=== PATIENT | male | born 1940 ===

== ENCOUNTER 2017-03-13 19:46 | Inpatient (IN) | payer MEDICARE, OTHER ==
[2017-03-13 20:05] VITALS: BMI 26.9
--- NOTE | 2017-03-13 20:40 | ED PDOC ---
Arrival/HPI - General Chief Complaint: High Blood Pressure Time Seen by Provider: 03/13/17 20:20 Historian: Patient - History of Present Illness Narrative History of Present Illness (Text): 03/13/17 20:41 A 76 year old male, whose past medical history includes glaucoma and cataracts, presents to the emergency department complaining of left arm tingling and numbness that developed 2-3 hours ago. Pt states numbness and tingling fully resolved while in the ED. Patient also reports elevated blood pressure today. PMD: Dr. Covington Symptom Onset: Sudden Symptom Course: Unchanged Activities at Onset: Rest Context: Home Past Medical History - Provider Review Nursing Documentation Reviewed: Yes - Infectious Disease Hx of Infectious Diseases: None - Tetanus Immunization Tetanus Immunization: Unknown - Cardiac Hx Hypertension: Yes - Pulmonary Hx Respiratory Disorders: No - HEENT Hx HEENT Disorder: Yes Hx Cataracts: Yes Hx Glaucoma: Yes - Renal Hx Renal Disorder: No - Musculoskeletal/Rheumatological Hx Arthritis: Yes - Gastrointestinal Hx Gastrointestinal Disorders: Yes Hx Gastroesophageal Reflux: Yes - Genitourinary/Gynecological Hx Prostate Problems: Yes - Psychiatric Hx Substance Use: No - Past Surgical History Past Surgical History: No Previous - Surgical History Hx Cataract Extraction: Yes Hx Cholecystectomy: Yes - Anesthesia Hx Anesthesia: Yes Hx Anesthesia Reactions: No Hx Malignant Hyperthermia: No - Suicidal Assessment Feels Threatened In Home Enviroment: No Family/Social History - Physician Review Nursing Documentation Reviewed: Yes Family/Social History: No Known Family HX Smoking Status: Former Smoker Hx Alcohol Use: Yes Frequency of alcohol use: Socially Hx Substance Use: No Hx Substance Use Treatment: No Allergies/Home Meds Allergies/Adverse Reactions: Allergies No Known Allergies Allergy (Verified 10/24/15 12:55) Home Medications: Home Meds Medication Instructions Recorded Confirmed Aspirin [Aspir 81] 1 tab PO DAILY 10/19/13 03/13/17 Combigan 0.2%-0.5% 5 ml 1 drop OD DAILY 10/19/13 03/13/17 Dorzolamide 2% 1 drop OD BID 10/19/13 03/13/17 Simvastatin 20 mg PO DAILY 10/19/13 03/13/17 Tadalafil [Cialis] 5 mg PO DAILY PRN 10/24/15 03/13/17 Famotidine [Pepcid] 1 tab PO BID 03/13/17 03/13/17 Review of Systems - Physician Review All systems were reviewed & negative as marked: Yes Physical Exam - Physical Exam Narrative Physical Exam (Text): 03/13/17 20:39- Review of Systems Constitutional: Normal. absent: Fatigue, Weight Change, Fevers Eyes: Normal ENT: Normal Respiratory: Normal absent: SOB, Cough, Sputum Cardiovascular: Normal absent: Chest pain, Palpitations, Syncope Gastrointestinal: Normal absent: Abdominal pain, Diarrhea, Nausea, Vomiting Genitourinary: Normal. absent: Dysuria, Frequency, Hematuria Musculoskeletal: left arm tingling and numbness absent: Arthralgias, Back Pain, Neck Pain Skin: Normal Neurological: Normal absent: Focal Weakness Endocrine: Normal Hemo/Lymphatic: Normal Psychiatric: Normal - Physical exam Patient appears age appropriate, speaking full sentences without difficulty - Systems Exam Head: Present: Atraumatic, Normocephalic Pupils: Present: L. pupil reactive to light. R. pupil non-reactive. Pt states this is not new, states he has a hx of cataract Extraocular Muscles: Present: EOMI Conjunctiva: Present: Normal Mouth: Present: Moist Mucous Membranes Neck: Present: Normal Range of Motion. No: MIDLINE TENDERNESS, Paraspinal Tenderness Respiratory/Chest: Present: Clear to Auscultation, Good Air Exchange. No: Respiratory Distress, Accessory Muscle Use, Tachypnic Cardiovascular: Present: Regular Rate and Rhythm, Normal S1, S2, Peripheral Pulses Present. No: Murmurs Abdomen: Present: Normal Bowel Sounds, No: Tenderness, Peritoneal Signs, Rebound, Guarding, Distention Back: Present: Normal Inspection. No: Midline Tenderness, Paraspinal Tenderness Upper Extremity: Present: Normal Inspection. No: Cyanosis, Edema Lower Extremity: Present: Normal Inspection. No: Edema Neurological: Present: GCS=15, Speech Normal, cranial nerves II through XII fully intact with no cerebellar abnormality, neuro-sensory fully intact. No focal neurological deficits. Skin: Present: Warm, Dry, Normal Color. No: Rashes Lymphatic: Present: OX3, NI, NC Psychiatric: Present: Alert, Oriented x 3, Normal Insight, Normal Concentration Vital Signs Reviewed: Yes Vital Signs Temp Pulse Pulse Resp BP BP Pulse Ox 03/13/17 21:08 98.1 F 60 25 H 144/88 98 03/13/17 20:13 60 148/80 03/13/17 20:03 98.2 F 62 18 148/80 98 Temperature: Afebrile Blood Pressure: Normal Pulse: Regular Respiratory Rate: Normal Appearance: Positive for: Well-Appearing, Non-Toxic, Comfortable Pain Distress: None Mental Status: Positive for: Alert and Oriented X 3 Medical Decision Making ED Course and Treatment: 03/13/17 20:36 Impression: A 76 year old male with left arm tingling and numbness which has resolved. pt has no focal neurological deficits on examination Differential Diagnosis included but are not limited to: TIA Plan: -- EKG -- CT head -- chest xray -- labs -- Urinalysis -- Reassess and disposition Prior Visits: Notes and results from previous visits were reviewed. Patient last reported to the emergency department on 10/24/15 for evaluation of head and neck pain after fall. Progress Notes: EKG shows NSR at [address]-segment elevations, normal intervals. Interpreted by me. CT Head Without Intravenous Contrast FINDINGS: Brain: No evidence of acute intracranial bleed. No mass lesion or mass effect. Richard/white matter differentiation is unremarkable. Cerebellum is unremarkable. Cisterns are unremarkable. Brainstem is unremarkable. No suprasellar mass. No edema. Ventricles: Unremarkable. No ventriculomegaly. Bones/joints: Unremarkable. No acute fracture. Soft tissues: Unremarkable. Sinuses: Unremarkable as visualized. No acute sinusitis. Mastoid air cells: Unremarkable as visualized. No mastoid effusion. IMPRESSION: No evidence of acute pathology. Dictated and Authenticated by: Melani Doran MD 03/13/2017 9:07 PM Eastern Time ([place] & [place]) 03/13/17 22:08 Chest xray interpreted by ED physician shows no pneumothorax, no cardiomegaly, no infiltrates 03/13/17 22:[address] Garcia, accepted obs under his service pt aware of and agrees with plan no focal neurological deficits on reeval - Lab Interpretations Lab Results: 03/13/17 20:40 03/13/17 20:40 Lab Results 03/13/17 21:28: Urine Color Yellow, Urine Appearance Clear, Urine pH 7.5, Ur Specific [place] 1.010, Urine Protein Negative, Urine Glucose (UA) Negative, Urine Ketones Negative, Urine Blood Trace-lysed H, Urine Nitrate Negative, Urine Bilirubin Negative, Urine Urobilinogen 0.2, Ur Leukocyte Esterase Negative , Urine RBC 1 - 3, Urine WBC 0 - 2, Ur Epithelial Cells 0 - 2 03/13/17 20:40: Blood Type O POSITIVE, Antibody Screen Negative, BBK History Checked No verified bt 03/13/17 20:40: Sodium 140, Potassium 4.6, Chloride 103, Carbon Dioxide 28, Anion Gap 14, BUN 15, Creatinine 1.2, Est GFR ( Amer) > 60, Est GFR (Non- Af Amer) 59, Random Glucose 106, Calcium 9.3, Total Bilirubin 0.4, AST 22, ALT 25, Alkaline Phosphatase 75, Troponin I < 0.01 D, Total Protein 8.1, Albumin 4.4, Globulin 3.8, Albumin/Globulin Ratio 1.2, Triglycerides 107, Cholesterol 116 L, LDL Cholesterol Direct 63, HDL Cholesterol 34 03/13/17 20:40: PT 11.8, INR 1.09 H, APTT 28.8 03/13/17 20:40: WBC 9.4, RBC 3.92, Hgb 12.8 L, Hct 36.8 L, MCV 93.9, MCH 32.7, MCHC 34.8, RDW 14.4, Plt Count 215, MPV 10.1, Gran % 44.5 L, Lymph % (Auto) 36.3 H, [place] % (Auto) 7.4 H, Eos % (Auto) 11.5 H, Baso % (Auto) 0.3, Gran # 4.18 , Lymph # 3.4, [place] # 0.7 H, Eos # 1.1 H, Baso # 0.03 I have reviewed the lab results: Yes - RAD Interpretation Radiology Orders: 03/13/17 20:26 CHEST ONE VIEW [RAD] Stat 03/13/17 20:27 HEAD W/O CONTRAST [CT] Stat - EKG Interpretation Interpreted by ED Physician: Yes Type: 12 lead EKG - Medication Orders Current Medication Orders: Discontinued Medications Aspirin (Aspirin Chewable) 324 mg PO STAT STA Stop: 03/13/17 22:07 Atorvastatin Calcium (Lipitor) 40 mg PO STAT STA Stop: 03/13/17 22:07 NIHSS Scale ([place]) Time Performed: 22:02 - How Severe is the Stoke Baseline Level of Consciousness: 0=Alert LOC to Questions: 0=Both comments correct LOC to commands: 0=Obeys both correctly Best Gaze: 0=Normal Visual: 0=No visual loss Facial: 0=Normal Motor Arm - Left: 0=No drift Motor Arm - Right: 0=No drift Motor Leg - Left: 0=No drift Motor Leg - Right: 0=No drift Limb Ataxia: 0=Absent Sensory: 0=Normal Best Language: 0=No aphasia Dysarthia: 0=Normal articulation Extinction & Inattention (Neglect): 0=Normal, no object Score: 0 Risk Level: No Stroke Risk rTPA Inclusion/Exclusion - Refusal of Treatment Patient Refused Treatment: No - Inclusion Criteria for Altepase Patient is 18 years or Older: Yes The Clinical Diagnosis of Ischemic Stroke That is Causing a Potentially Disabling Neurological Deficit: No Time of Onset is Well Established to be Less Than 270 Minute Before Treatment Would Begin: Yes Risk/Benefit Discussed With Patient/Family Member Present: No - Scribe Statement The provider has reviewed the documentation as recorded by the Kitaibe Gilberto Sheikh Provider Scribe Attestation: All medical record entries made by the Scribe were at my direction and personally dictated by me. I have reviewed the chart and agree that the record accurately reflects my personal performance of the history, physical exam, medical decision making, and the department course for this patient. I have also personally directed, reviewed, and agree with the discharge instructions and disposition. Disposition/Present on Arrival - Present on Arrival Any Indicators Present on Arrival: No History of DVT/PE: No History of Uncontrolled Diabetes: No Urinary Catheter: No History of Decub. Ulcer: No History Surgical Site Infection Following: None - Disposition Have Diagnosis and Disposition been Completed?: Yes Diagnosis: TIA (transient ischemic attack) Disposition: HOSPITALIZED Disposition Time: 22:22 Patient Plan: Observation Condition: STABLE Referrals: Corie Covington MD [Primary Care Provider] - Follow up with primary
[2017-03-13 20:54] LABS: BASO # 0.03 K/mm3 (0.0-2.0); BASO % 0.3 % (0.0-3.0); EOS # 1.1 (0.0-0.7); EOS % 11.5 % (1.5-5.0); GRAN # 4.18 (1.4-6.5); GRAN % 44.5 % (50.0-68.0); HEMOGLOBIN 12.8 gm/dL (14.0-18.0); LYMPH # 3.4 (1.2-3.4); LYMPH % 36.3 % (22.0-35.0); MEAN CELL VOLUME 93.9 fL (80.0-105.0); MEAN CORPUSCULAR HEMOGLOBIN 32.7 pg (25.0-35.0); MEAN CORPUSCULAR HGB CONC 34.8 g/dl (31.0-37.0); MEAN PLATELET VOLUME 10.1 fl (7.0-11.0); MONO # 0.7 (0.1-0.6); MONO % 7.4 % (1.0-6.0); PLATELET COUNT 215 10^3/uL (120.0-450.0); RBC 3.92 10^6/uL (3.5-6.1); RED CELL DISTRIBUTION WIDTH 14.4 % (11.5-14.5); WHITE BLOOD COUNT 9.4 10^3/ul (4.5-11.0)
[2017-03-13 21:04] LABS: ALB/GLOB RATIO 1.2 (1.1-1.8); ALBUMIN 4.4 g/dL (3.0-4.8); ALT/SGPT 25 U/L (7-56); AST/SGOT 22 U/L (15-59); BLOOD UREA NITROGEN 15 mg/dL (7-21); CALCIUM 9.3 mg/dL (8.4-10.5); GFR AFRICAN-AMERICAN > 60; GFR NON-AFRICAN AMERICAN 59; HDL CHOLESTEROL 34 mg/dL (29-60); INR 1.09 (0.93-1.08); PARTIAL THROMBOPLASTIN TIME 28.8 Seconds (23.7-30.8); PROTHROMBIN TIME 11.8 Seconds (9.9-11.8)
[2017-03-13 21:15] LABS: LDL CHOLESTEROL 63 mg/dL (0-129)
[2017-03-13 21:19] LABS: TROPONIN I < 0.01 ng/mL
[2017-03-13 21:40] LABS: PH,URINE 7.5 (4.7-8.0); URINE BILIRUBIN NEGATIVE (NEGATIVE); URINE BLOOD TRACE-LYSED (NEGATIVE); URINE GLUCOSE (UA) NEGATIVE (NEGATIVE); URINE LEUKOCYTE ESTERASE NEGATIVE Leu/uL (NEGATIVE); URINE NITRATE NEGATIVE (NEGATIVE); URINE PROTEIN NEGATIVE mg/dL (<30 mg/dL); URINE UROBILINOGEN 0.2 E.U./dL (<1 E.U./dL)
[2017-03-13 21:46] LABS: URINE APPEARANCE CLEAR (CLEAR); URINE COLOR YELLOW (YELLOW)
[2017-03-13 22:04] LABS: URINE EPITHELIAL CELLS 0 - 2 /hpf (0-5); URINE WBC 0 - 2 /hpf (0-6)
[2017-03-14 03:56] LABS: BASO # 0.03 K/mm3 (0.0-2.0); BASO % 0.3 % (0.0-3.0); EOS # 1.1 (0.0-0.7); EOS % 9.9 % (1.5-5.0); GRAN # 4.31 (1.4-6.5); GRAN % 39.4 % (50.0-68.0); HEMOGLOBIN 12.5 gm/dL (14.0-18.0); LYMPH # 4.6 (1.2-3.4); LYMPH % 42.4 % (22.0-35.0); MEAN CELL VOLUME 93.1 fL (80.0-105.0); MEAN CORPUSCULAR HEMOGLOBIN 31.8 pg (25.0-35.0); MEAN CORPUSCULAR HGB CONC 34.2 g/dl (31.0-37.0); MEAN PLATELET VOLUME 9.7 fl (7.0-11.0); MONO # 0.9 (0.1-0.6); PLATELET COUNT 196 10^3/uL (120.0-450.0); RBC 3.93 10^6/uL (3.5-6.1); RED CELL DISTRIBUTION WIDTH 14.2 % (11.5-14.5); WHITE BLOOD COUNT 10.9 10^3/ul (4.5-11.0)
[2017-03-14 04:14] LABS: ALB/GLOB RATIO 1.1 (1.1-1.8); ALBUMIN 3.9 g/dL (3.0-4.8); ALT/SGPT 22 U/L (7-56); AST/SGOT 23 U/L (15-59); BLOOD UREA NITROGEN 14 mg/dL (7-21); CALCIUM 9.1 mg/dL (8.4-10.5); GFR AFRICAN-AMERICAN > 60; GFR NON-AFRICAN AMERICAN > 60
[2017-03-14 04:45] LABS: TROPONIN I < 0.01 ng/mL
[2017-03-14 08:30] LABS: BASO # 0.03 K/mm3 (0.0-2.0); BASO % 0.3 % (0.0-3.0); EOS # 1.1 (0.0-0.7); GRAN # 4.77 (1.4-6.5); GRAN % 46.9 % (50.0-68.0); LYMPH # 3.4 (1.2-3.4); LYMPH % 33.8 % (22.0-35.0); MEAN CELL VOLUME 93.3 fL (80.0-105.0); MEAN CORPUSCULAR HEMOGLOBIN 32.3 pg (25.0-35.0); MEAN CORPUSCULAR HGB CONC 34.7 g/dl (31.0-37.0); MEAN PLATELET VOLUME 9.8 fl (7.0-11.0); MONO # 0.8 (0.1-0.6); PLATELET COUNT 226 10^3/uL (120.0-450.0); RBC 4.33 10^6/uL (3.5-6.1); RED CELL DISTRIBUTION WIDTH 14.1 % (11.5-14.5); WHITE BLOOD COUNT 10.2 10^3/ul (4.5-11.0)
[2017-03-14 08:42] LABS: BLOOD UREA NITROGEN 13 mg/dL (7-21); CALCIUM 9.4 mg/dL (8.4-10.5); GFR AFRICAN-AMERICAN > 60; GFR NON-AFRICAN AMERICAN > 60; MAGNESIUM 2.2 mg/dL (1.7-2.2)
--- NOTE | 2017-03-14 08:47 | CARD ---
APPROVED REPORT EKG Measurement Heart [id number] MA [id number] <Conclusion> Normal sinus rhythm Normal ECG
[2017-03-14 08:54] LABS: TROPONIN I < 0.01 ng/mL
--- NOTE | 2017-03-14 09:06 | CT ---
PROCEDURE: CT HEAD WITHOUT CONTRAST. HISTORY: tia COMPARISON: 06/14/2016 TECHNIQUE: Axial computed tomography images were obtained through the head/brain without intravenous contrast. Radiation dose: Total exam DLP = 677.45 mGy-cm. This CT exam was performed using one or more of the following dose reduction techniques: Automated exposure control, adjustment of the mA and/or kV according to patient size, and/or use of iterative reconstruction technique. FINDINGS: HEMORRHAGE: No intracranial hemorrhage. BRAIN: No mass effect or edema. No atrophy or chronic microvascular ischemic changes. VENTRICLES: Unremarkable. No hydrocephalus. CALVARIUM: Unremarkable. PARANASAL SINUSES: Unremarkable as visualized. No significant inflammatory changes. MASTOID AIR CELLS: Unremarkable as visualized. No inflammatory changes. OTHER FINDINGS: None. IMPRESSION: Normal CT of the Head. No intracranial mass, hemorrhage or evidence of acute infarct. No interval change. Preliminary interpretation of this examination was reported by [facility] at 9:07 p.m. on 03/13/2017. There is concurrence of this report with the preliminary interpretation.
[2017-03-14 09:28] LABS: FREE T4 1.23 ng/dL (0.78-2.19)
[2017-03-14] MEDS ORDERED: Pantoprazole 40 mg EC Tab PO SCH (10:00)
--- NOTE | 2017-03-14 10:16 | CP.PCM.PN ---
<Nemesio Booker - Last Filed: 03/14/17 11:53> Subjective - Date & Time of Evaluation Date of Evaluation: 03/14/17 Time of Evaluation: 07:30 - Subjective Subjective: Patient seen and examined at bedside. Hospital day #2. He is resting comfortably in bed. He was observed ambulating in his room without any overt difficulty. No acute events since admission. Nurse was utilized as a event marketing representative. Patient states symptoms have resolved in the ED. Offers no new complaints at this time. Denies chest pain, SOB, N/V, and dizziness. Objective - Vital Signs/Intake and Output Vital Signs (last 24 hours): Temp Pulse Resp BP Pulse Ox 98.4 F 76 20 127/92 H 98 03/14/17 05:59 03/14/17 05:59 03/14/17 05:59 03/14/17 05:59 03/14/17 05:59 Intake and Output: 03/14/17 03/14/17 06:59 18:59 Intake Total 240 Output Total 400 Balance -160 - Medications Medications: Current Medications Aspirin (Ecotrin) 81 mg PO DAILY DIO Atorvastatin Calcium (Lipitor) 10 mg PO DIN DIO Dorzolamide HCl (Trusopt) 0 ml OD BID DIO Famotidine (Pepcid) 20 mg PO BID DIO Non-Formulary Medication (Combigan 0.2%-0.5% 5 Ml) 1 drop OD DAILY DIO Pantoprazole Sodium (Protonix Ec Tab) 40 mg PO 0600 DIO - Labs Labs: 03/14/17 08:23 03/14/17 08:23 PT 11.8 Seconds (9.9-11.8) 03/13/17 20:40 INR 1.09 (0.93-1.08) H 03/13/17 20:40 APTT 28.8 Seconds (23.7-30.8) 03/13/17 20:40 - Constitutional Appears: Well, Non-toxic, No Acute Distress - Head Exam Head Exam: ATRAUMATIC, NORMAL INSPECTION - Eye Exam Eye Exam: EOMI, Normal appearance. absent: Conjunctival injection - ENT Exam ENT Exam: Mucous Membranes Moist, Normal Exam - Neck Exam Neck Exam: Normal Inspection. absent: Thyromegaly - Respiratory Exam Respiratory Exam: Clear to Ausculation Bilateral. absent: Rales, Rhonchi, Wheezes - Cardiovascular Exam Cardiovascular Exam: REGULAR RHYTHM, +S1, +S2 - GI/Abdominal Exam GI & Abdominal Exam: Soft. absent: Firm, Guarding, Tenderness - Extremities Exam Extremities Exam: Normal Inspection - Neurological Exam Neurological Exam: Alert, Awake Additional comments: patient is awake, alert, responds to verbal stimuli, follows commands, and moves extremities spontaneously - Psychiatric Exam Psychiatric exam: Normal Affect, Normal Mood - Skin Skin Exam: Intact, Warm Assessment and Plan - Assessment and Plan (Free Text) Assessment: Patient is a 76 year old male with a PMHx of htn, hpl, arthritis, gerd , cataracts, and glucoma who was admitted on 03/13/2017 for evaluation and treatment of a left arm tingling and numbness. He is currently admitted under observation day #2. Plan: 1. Left Arm Paraesthesias, details- symptoms resolved in ED, working dx- TIA - continue aspirin and statin - CT of head- revealed no acute intracranial findings - MRI/MRA of Head and Cervical Spine - Lipid Profile - HgBA1C - ESR - CRP - B12 - Folate -Carotid duplex bilaterally - Echo - Cardiology is following, appreciate input - Neurology is following, appreciate input 2. HPL - continue statin 3. Htn - stable now, continue to monitor closely off of antihypertensive medications 4. GERD - continue famotidine 5. Glaucoma - continue home dorzolamide 6. PPX - home famotidine - SCD Patient seen, evaluated, and discussed with attending, Dr. Garcia. <Juice Garcia - Last Filed: 04/05/17 09:42> Objective - Vital Signs/Intake and Output Vital Signs (last 24 hours): Temp Pulse Resp BP Pulse Ox 97 F L 65 16 146/88 98 03/14/17 17:38 03/14/17 17:38 03/14/17 17:38 03/14/17 17:38 03/14/17 05:59 Intake and Output: 03/14/17 03/14/17 06:59 18:59 Intake Total 240 600 Output Total 400 500 Balance -160 100 - Medications Medications: Current Medications Aspirin (Ecotrin) 81 mg PO DAILY [facility] Last Admin: 03/14/17 10:16 Dose: 81 mg Atorvastatin Calcium (Lipitor) 10 mg PO DIN [facility] Last Admin: 03/14/17 17:42 Dose: 10 mg Dorzolamide HCl (Trusopt) 0 ml OD BID [facility] Last Admin: 03/14/17 17:42 Dose: 1 drop Famotidine (Pepcid) 20 mg PO BID [facility] Last Admin: 03/14/17 17:42 Dose: 20 mg Non-Formulary Medication (Combigan 0.2%-0.5% 5 Ml) 1 drop OD DAILY [facility] Last Admin: 03/14/17 10:17 Dose: Not Given - Labs Labs: 03/14/17 08:23 03/14/17 08:23 PT 11.8 Seconds (9.9-11.8) 03/13/17 20:40 INR 1.09 (0.93-1.08) H 03/13/17 20:40 APTT 28.8 Seconds (23.7-30.8) 03/13/17 20:40 Assessment and Plan - Assessment and Plan (Free Text) Assessment: A/P ?TIA WITH LEFT UE PARESTHESIAS HTN ??SENSORY TIA ?CERVICAL RADICULOPATHY MILD ANEMIA. AWAITING NEUROLOGY AND CARDIOLOGY EVALUATION AND RECOMMENDATIONS. Attending/Attestation - Attestation I have personally seen and examined this patient.: Yes I have fully participated in the care of the patient.: Yes I have reviewed all pertinent clinical information, including history, physical exam and plan: Yes
[2017-03-14] MEDS: COMBIGAN OD SCH (10:17)
[2017-03-14] MEDS: Dorzolamide 2% Opht Sol 10ml OD SCH ×2 (10:17→17:42)
--- NOTE | 2017-03-14 10:40 | RAD ---
PROCEDURE: CHEST RADIOGRAPH, 1 VIEW HISTORY: tia COMPARISON: 10/24/2015 FINDINGS: LUNGS: Clear. PLEURA: No pneumothorax or pleural fluid seen. CARDIOVASCULAR: Normal. OSSEOUS STRUCTURES: No significant abnormalities. VISUALIZED UPPER ABDOMEN: Normal. OTHER FINDINGS: None. IMPRESSION: No active disease.
[2017-03-14 12:46] LABS: T4 7.9 ug/dL (5.5-11.0)
[2017-03-14 13:23] LABS: FOLATE > 20.0 ng/mL
--- NOTE | 2017-03-14 19:46 | CP.PCM.HP ---
<SILVESTRE GALDAMEZ - Last Filed: 03/14/17 23:40> History of Present Illness - History of Present Illness History of Present Illness: H&P note for March 13 2017 76 year old male with a past medical history of gastritis, glaucoma and cataracts presented to the ED with complaints of numbness and tingling of his left forearm with a duration of three hours. Patient states that this sensation has only occurred once before, which was the day prior. During both occurrences patient states he was not engaging in any physical activity. Patient states he is compliant with his two medications famotidine and docusate , and admits to taking multivitamins. While being examined patient states that numbness sensation had subsided since being admitted. Patient admits to a syncopal episode which took place about a year ago while making a bowel movement in which the patient passed out and hit his head. Patient denies recent trauma, radiation of sensation, weakness, dizziness, headache, vision changes. PMD: Dr. Garcia PMH: as above FH: Grandmother: diabetes Meds: Reviewed Allergies:NKA Present on Admission - Present on Admission Any Indicators Present on Admission: No Past Patient History - Infectious Disease Hx of Infectious Diseases: None - Tetanus Immunizations Tetanus Immunization: Unknown - Past Social History Smoking Status: Former Smoker - CARDIAC Hx Hypertension: Yes - PULMONARY Hx Respiratory Disorders: No - HEENT Hx HEENT Problems: Yes Hx Cataracts: Yes Hx Glaucoma: Yes - RENAL Hx Chronic Kidney Disease: No - MUSCULOSKELETAL/RHEUMATOLOGICAL Hx Falls: Yes (Fall in Oct 2015) - GASTROINTESTINAL Hx Gastrointestinal Disorders: Yes Hx Gastroesophageal Reflux: Yes - GENITOURINARY/GYNECOLOGICAL Hx Prostate Problems: Yes - PSYCHIATRIC Hx Substance Use: No - SURGICAL HISTORY Hx Cataract Extraction: Yes Hx Cholecystectomy: Yes - ANESTHESIA Hx Anesthesia: Yes Hx Anesthesia Reactions: No Hx Malignant Hyperthermia: No Meds Home Medications: Home Medication List Medication Instructions Recorded Confirmed Type Aspirin [Ecotrin] 81 mg PO DAILY #30 03/16/17 Rx Clopidogrel [Plavix] 75 mg PO DAILY #30 tab 03/16/17 Rx Allergies/Adverse Reactions: Allergies Allergy/AdvReac Type Severity Reaction Status Date / Time No Known Allergies Allergy Verified 03/25/17 11:44 Physical Exam - Constitutional Appears: Well, No Acute Distress - Head Exam Head Exam: NORMAL INSPECTION, NORMOCEPHALIC Additional comments: Scar from falling and hitting head on bathroom counter after an episode of syncope during bowel movement. - Eye Exam Eye Exam: Normal appearance - ENT Exam ENT Exam: Mucous Membranes Moist, Normal Exam - Neck Exam Neck exam: Positive for: Normal Inspection - Respiratory Exam Respiratory Exam: Clear to Auscultation Bilateral, NORMAL BREATHING PATTERN - Cardiovascular Exam Cardiovascular Exam: REGULAR RHYTHM - GI/Abdominal Exam GI & Abdominal Exam: Normal Bowel Sounds, Soft - Back Exam Back exam: NORMAL INSPECTION - Neurological Exam Neurological exam: Alert, Normal Gait, Oriented x3 - Psychiatric Exam Psychiatric exam: Normal Affect, Normal Mood - Skin Skin Exam: Normal Color, Warm Results - Vital Signs Recent Vital Signs: Last Vital Signs Temp 97 F L 03/14/17 17:38 Pulse 72 03/14/17 18:00 Resp 16 03/14/17 17:38 BP 146/88 03/14/17 17:38 Pulse Ox 98 03/14/17 05:59 - Labs Result Diagrams: 03/14/17 08:23 03/14/17 08:23 Labs: Laboratory Results - last 24 hr 03/14/17 03/14/17 03/14/17 03:40 03:40 08:23 WBC 10.9 RBC 3.93 Hgb 12.5 L Hct 36.6 L MCV 93.1 MCH 31.8 MCHC 34.2 RDW 14.2 Plt Count 196 MPV 9.7 Gran % 39.4 L Lymph % (Auto) 42.4 H [place] % (Auto) 8.0 H Eos % (Auto) 9.9 H Baso % (Auto) 0.3 Gran # 4.31 Lymph # 4.6 H [place] # 0.9 H Eos # 1.1 H Baso # 0.03 ESR Sodium 142 142 Potassium 4.1 4.8 Chloride 107 106 Carbon Dioxide 27 28 Anion Gap 12 13 BUN 14 13 Creatinine 0.9 0.9 Est GFR ( Amer) > 60 > 60 Est GFR (Non-Af Amer) > 60 > 60 Random Glucose 97 96 Calcium 9.1 9.4 Phosphorus 3.0 Magnesium 2.2 Total Bilirubin 0.4 AST 23 ALT 22 Alkaline Phosphatase 74 Troponin I < 0.01 < 0.01 C-React Prot High Sens Total Protein 7.3 Albumin 3.9 Globulin 3.4 Albumin/Globulin Ratio 1.1 Vitamin B12 597 Folate 18.0 Free T4 Thyroxine (T4) Total T3 TSH 3rd Generation 03/14/17 03/14/17 03/14/17 08:23 08:55 08:55 WBC 10.2 RBC 4.33 Hgb 14.0 Hct 40.4 L MCV 93.3 MCH 32.3 MCHC 34.7 RDW 14.1 Plt Count 226 MPV 9.8 Gran % 46.9 L Lymph % (Auto) 33.8 [place] % (Auto) 8.0 H Eos % (Auto) 11.0 H Baso % (Auto) 0.3 Gran # 4.77 Lymph # 3.4 [place] # 0.8 H Eos # 1.1 H Baso # 0.03 ESR 17 H Sodium Potassium Chloride Carbon Dioxide Anion Gap BUN Creatinine Est GFR ( Amer) Est GFR (Non-Af Amer) Random Glucose Calcium Phosphorus Magnesium Total Bilirubin AST ALT Alkaline Phosphatase Troponin I C-React Prot High Sens 3.69 H Total Protein Albumin Globulin Albumin/Globulin Ratio Vitamin B12 Folate Free T4 1.23 Thyroxine (T4) 7.9 Total T3 TSH 3rd Generation 1.66 03/14/17 03/14/17 08:55 08:55 WBC RBC Hgb Hct MCV MCH MCHC RDW Plt Count MPV Gran % Lymph % (Auto) [place] % (Auto) Eos % (Auto) Baso % (Auto) Gran # Lymph # [place] # Eos # Baso # ESR Sodium Potassium Chloride Carbon Dioxide Anion Gap BUN Creatinine Est GFR ( Amer) Est GFR (Non-Af Amer) Random Glucose Calcium Phosphorus Magnesium Total Bilirubin AST ALT Alkaline Phosphatase Troponin I C-React Prot High Sens Total Protein Albumin Globulin Albumin/Globulin Ratio Vitamin B12 646 Folate > 20.0 Free T4 Thyroxine (T4) Total T3 1.38 TSH 3rd Generation Assessment & Plan - Assessment and Plan (Free Text) Assessment: Assessment: 76 year old male with a PMH syncope, gastritis, glaucoma, and cataracts who presented with numbness and tingling in left forearm. Plan: 1. Left Extremity Paresthesia Multiple etiologies possible: will order a series of labs and check cbc, ESR, thyroid panel, glucose B12, folate. Will order carotid and vertebral duplex US to rule out cerebrovascular etiology. - Date & Time Date: 03/13/17 Time: 11:30 <Juice Garcia U - Last Filed: 04/05/17 09:43> Results - Vital Signs Recent Vital Signs: Last Vital Signs Temp 97 F L 03/16/17 16:00 Pulse 60 03/16/17 16:00 Resp 18 03/16/17 16:00 BP 140/80 03/16/17 16:00 Pulse Ox 98 03/16/17 16:00 - Labs Result Diagrams: 03/16/17 07:00 03/16/17 07:00 Assessment & Plan - Assessment and Plan (Free Text) Assessment: A/P: A/P ?TIA WITH LEFT UE PARESTHESIAS HTN ??SENSORY TIA ?CERVICAL RADICULOPATHY. MILD ANEMIA. AWAITING NEUROLOGY AND CARDIOLOGY EVALUATION AND RECOMMENDATIONS. Attending/Attestation - Attestation I have personally seen and examined this patient.: Yes I have fully participated in the care of the patient.: Yes I have reviewed all pertinent clinical information: Yes
[2017-03-15 07:47] LABS: BASO # 0.04 K/mm3 (0.0-2.0); BASO % 0.4 % (0.0-3.0); EOS # 0.9 (0.0-0.7); GRAN # 3.84 (1.4-6.5); GRAN % 39.5 % (50.0-68.0); HEMOGLOBIN 13.4 gm/dL (14.0-18.0); LYMPH # 4.1 (1.2-3.4); LYMPH % 41.7 % (22.0-35.0); MEAN CELL VOLUME 93.7 fL (80.0-105.0); MEAN CORPUSCULAR HEMOGLOBIN 32.3 pg (25.0-35.0); MEAN CORPUSCULAR HGB CONC 34.4 g/dl (31.0-37.0); MEAN PLATELET VOLUME 10.2 fl (7.0-11.0); MONO # 0.9 (0.1-0.6); MONO % 9.4 % (1.0-6.0); PLATELET COUNT 219 10^3/uL (120.0-450.0); RBC 4.15 10^6/uL (3.5-6.1); RED CELL DISTRIBUTION WIDTH 14.3 % (11.5-14.5); WHITE BLOOD COUNT 9.7 10^3/ul (4.5-11.0)
--- NOTE | 2017-03-15 08:06 | CP.PCM.CON ---
<Huy Sterling - Last Filed: 03/15/17 11:55> History of Present Illness - History of Present Illness History of Present Illness: PGY-[address] Grant Cabrera's Neurology Service: Reason for Consultation: Paresthesias This is a 76 year old male with a history of gastritis, glaucoma, cataracts, arthritis, pre-diabetes who presented to the ED with numbness and tingling of the dorsal left forearm for three hours. Patient stated that he was just sitting on his couch as normal and felt the onset. It occurred once before on the day prior to admission. Patient states that shaking his arm reduced his symptoms and at the time of encounter he was asymptomatic. Patient denied weakness, headache, recent changes in vision, radiation of symptoms. Of note, the patient had a syncopal episode a year ago during a bowel movement. Patient denies CP, SOB, n/v/c/d, abdominal pain, dysuria. PMH: Glaucoma, Cataracts, Gastritis, Arthritis, Pre-DM PSH: Cataract surgery Allergies: NKDA Social: Former smoker, quit 15 years ago. Former drinker, quit 5 years ago. Denies drug use. FH: Grandmother with DM. Two aunts with CVA. Home meds: As per EMR PMD: Dr. Garcia Review of Systems - Constitutional Constitutional: absent: Weakness - EENT Eyes: Other (decreased vision 2/2 cataracts and glaucoma) Ears: absent: Decreased Hearing Nose/Mouth/Throat: absent: Dysphagia - Cardiovascular Cardiovascular: absent: Chest Pain - Respiratory Respiratory: absent: Dyspnea - Gastrointestinal Gastrointestinal: absent: Constipation, Diarrhea, Nausea, Vomiting - Genitourinary Genitourinary: absent: Dysuria - Musculoskeletal Musculoskeletal: absent: Muscle Weakness, Numbness, Tingling - Neurological Neurological: absent: Numbness, Weakness - Endocrine Endocrine: absent: Palpitations Past Patient History - Infectious Disease Hx of Infectious Diseases: None - Tetanus Immunizations Tetanus Immunization: Unknown - Past Social History Smoking Status: Former Smoker - CARDIAC Hx Hypertension: Yes - PULMONARY Hx Respiratory Disorders: No - HEENT Hx HEENT Problems: Yes Hx Cataracts: Yes Hx Glaucoma: Yes - RENAL Hx Chronic Kidney Disease: No - MUSCULOSKELETAL/RHEUMATOLOGICAL Hx Falls: Yes (Fall in Oct 2015) - GASTROINTESTINAL Hx Gastrointestinal Disorders: Yes Hx Gastroesophageal Reflux: Yes - GENITOURINARY/GYNECOLOGICAL Hx Prostate Problems: Yes - PSYCHIATRIC Hx Substance Use: No - SURGICAL HISTORY Hx Cataract Extraction: Yes Hx Cholecystectomy: Yes - ANESTHESIA Hx Anesthesia: Yes Hx Anesthesia Reactions: No Hx Malignant Hyperthermia: No Meds Allergies/Adverse Reactions: Allergies Allergy/AdvReac Type Severity Reaction Status Date / Time No Known Allergies Allergy Verified 10/24/15 12:55 - Medications Medications: Current Medications Acetaminophen (Tylenol 325mg Tab) 650 mg PO Q6H PRN PRN Reason: Pain, moderate (4-7) Last Admin: 03/14/17 22:54 Dose: 650 mg Aspirin (Ecotrin) 81 mg PO DAILY [facility] Last Admin: 03/14/17 10:16 Dose: 81 mg Atorvastatin Calcium (Lipitor) 10 mg PO DIN [facility] Last Admin: 03/14/17 17:42 Dose: 10 mg Dorzolamide HCl (Trusopt) 0 ml OD BID [facility] Last Admin: 03/14/17 17:42 Dose: 1 drop Famotidine (Pepcid) 20 mg PO BID [facility] Last Admin: 03/14/17 17:42 Dose: 20 mg Non-Formulary Medication (Combigan 0.2%-0.5% 5 Ml) 1 drop OD DAILY [facility] Last Admin: 03/14/17 10:17 Dose: Not Given Physical Exam - Constitutional Appears: Non-toxic, No Acute Distress - Head Exam Head Exam: ATRAUMATIC, NORMAL INSPECTION, NORMOCEPHALIC - Eye Exam Eye Exam: EOMI, PERRL - Cardiovascular Exam Cardiovascular Exam: REGULAR RHYTHM - GI/Abdominal Exam GI & Abdominal Exam: Normal Bowel Sounds, Soft - Extremities Exam Extremities exam: Positive for: pedal pulses present - Neurological Exam Neurological exam: Alert, CN II-XII Intact, Oriented x3, Reflexes Normal Additional comments: Intact sensation to light touch bilateral upper and lower extremities. Muscle strength testing 5/5 bilateral upper and lower extremities. Normal finger-nose test. Results - Vital Signs Recent Vital Signs: Last Vital Signs Temp 98.6 F 03/14/17 23:17 Pulse 65 03/15/17 04:52 Resp 19 03/14/17 23:17 BP 138/79 03/14/17 23:17 Pulse Ox 97 03/14/17 23:17 - Labs Result Diagrams: 03/15/17 07:10 03/15/17 07:10 Labs: Laboratory Results - last 24 hr 03/14/17 03/15/17 21:24 07:10 WBC 9.7 RBC 4.15 Hgb 13.4 L Hct 38.9 L MCV 93.7 MCH 32.3 MCHC 34.4 RDW 14.3 Plt Count 219 MPV 10.2 Gran % 39.5 L Lymph % (Auto) 41.7 H [place] % (Auto) 9.4 H Eos % (Auto) 9.0 H Baso % (Auto) 0.4 Gran # 3.84 Lymph # 4.1 H [place] # 0.9 H Eos # 0.9 H Baso # 0.04 POC Glucose (mg/dL) 126 H Assessment & Plan - Assessment and Plan (Free Text) Assessment: This is a 76 year old male with history of glaucoma, cataracts, arthritis, pre- DM who came in with non-radiating left dorsal forearm paresthesias. Plan: 1) CT w/o contrast reveals no acute ischemic or hemorrhagic changes 2) Symptoms were not associated with weakness or other loss of neurologic functioning, indicating that this is not a TIA. 3) Subjective paresthesia was likely a focal compression of a peripheral nerve. 4) Patient would benefit from outpatient EMG in a neurology office. 5) Outpatient PT for neck tightness due to cervical DJD. Case discussed with Dr. Deborah Sterling PGY-1 - Date & Time Date: 03/15/17 Time: 08:14 <Grant Cabrera - Last Filed: 03/15/17 12:12> Meds - Medications Medications: Current Medications Acetaminophen (Tylenol 325mg Tab) 650 mg PO Q6H PRN PRN Reason: Pain, moderate (4-7) Last Admin: 03/14/17 22:54 Dose: 650 mg Aspirin (Ecotrin) 81 mg PO DAILY [facility] Last Admin: 03/15/17 09:34 Dose: 81 mg Atorvastatin Calcium (Lipitor) 10 mg PO DIN [facility] Last Admin: 03/14/17 17:42 Dose: 10 mg Dorzolamide HCl (Trusopt) 0 ml OD BID [facility] Last Admin: 03/15/17 10:26 Dose: 1 drop Famotidine (Pepcid) 20 mg PO BID [facility] Last Admin: 03/15/17 09:34 Dose: 20 mg Non-Formulary Medication (Combigan 0.2%-0.5% 5 Ml) 1 drop OD DAILY [facility] Last Admin: 03/15/17 10:28 Dose: Not Given Results - Vital Signs Recent Vital Signs: Last Vital Signs Temp 98.6 F 03/14/17 23:17 Pulse 76 03/15/17 10:00 Resp 19 03/14/17 23:17 BP 138/79 03/14/17 23:17 Pulse Ox 97 03/14/17 23:17 - Labs Result Diagrams: 03/15/17 07:10 03/15/17 07:10 Labs: Laboratory Results - last 24 hr 03/14/17 03/15/17 03/15/17 21:24 07:10 07:10 WBC 9.7 RBC 4.15 Hgb 13.4 L Hct 38.9 L MCV 93.7 MCH 32.3 MCHC 34.4 RDW 14.3 Plt Count 219 MPV 10.2 Gran % 39.5 L Lymph % (Auto) 41.7 H [place] % (Auto) 9.4 H Eos % (Auto) 9.0 H Baso % (Auto) 0.4 Gran # 3.84 Lymph # 4.1 H [place] # 0.9 H Eos # 0.9 H Baso # 0.04 Sodium 142 Potassium 4.8 Chloride 106 Carbon Dioxide 29 Anion Gap 12 BUN 15 Creatinine 1.0 Est GFR ( Amer) > 60 Est GFR (Non-Af Amer) > 60 POC Glucose (mg/dL) 126 H Random Glucose 84 Calcium 9.3 Phosphorus 3.7 Magnesium 2.0 Attending/Attestation - Attestation I have personally seen and examined this patient.: Yes I have fully participated in the care of the patient.: Yes I have reviewed all pertinent clinical information: Yes Notes (Text): 03/15/17 12:10 SYMPTOMS ARE NOT FOCAL IN THE LINE OF TIA, SEEMS MORE OF PERIPHERAL NERVE COMPRESSION. GIVEN RIGHT CAROTID DISEASE RECOMMEND ASA 81 MG, ATORVASTATIN OF 20MG FOR STROKE PREVENTION. IF MRI BRAIN IS NEGATIVE FOR CVA, PT CAN FOLLOW UP WITH US IN OUTPATIENT.
[2017-03-15 08:08] LABS: BLOOD UREA NITROGEN 15 mg/dL (7-21); CALCIUM 9.3 mg/dL (8.4-10.5); GFR AFRICAN-AMERICAN > 60; GFR NON-AFRICAN AMERICAN > 60
--- NOTE | 2017-03-15 08:22 | CP.PCM.PN ---
Subjective - Date & Time of Evaluation Date of Evaluation: 03/15/17 Time of Evaluation: 08:00 - Subjective Subjective: (covering for Dr. Garcia) Patient complaining of numbness and tingling of left arm. Objective - Vital Signs/Intake and Output Vital Signs (last 24 hours): Temp Pulse Resp BP Pulse Ox 98.6 F 65 19 138/79 97 03/14/17 23:17 03/15/17 04:52 03/14/17 23:17 03/14/17 23:17 03/14/17 23:17 Intake and Output: 03/15/17 03/15/17 06:59 18:59 Intake Total 360 Output Total 670 Balance -310 - Medications Medications: Current Medications Acetaminophen (Tylenol 325mg Tab) 650 mg PO Q6H PRN PRN Reason: Pain, moderate (4-7) Last Admin: 03/14/17 22:54 Dose: 650 mg Aspirin (Ecotrin) 81 mg PO DAILY [facility] Last Admin: 03/14/17 10:16 Dose: 81 mg Atorvastatin Calcium (Lipitor) 10 mg PO DIN [facility] Last Admin: 03/14/17 17:42 Dose: 10 mg Dorzolamide HCl (Trusopt) 0 ml OD BID [facility] Last Admin: 03/14/17 17:42 Dose: 1 drop Famotidine (Pepcid) 20 mg PO BID [facility] Last Admin: 03/14/17 17:42 Dose: 20 mg Non-Formulary Medication (Combigan 0.2%-0.5% 5 Ml) 1 drop OD DAILY [facility] Last Admin: 03/14/17 10:17 Dose: Not Given - Labs Labs: 03/15/17 07:10 03/15/17 07:10 PT 11.8 Seconds (9.9-11.8) 03/13/17 20:40 INR 1.09 (0.93-1.08) H 03/13/17 20:40 APTT 28.8 Seconds (23.7-30.8) 03/13/17 20:40 - Constitutional Appears: No Acute Distress - Head Exam Head Exam: ATRAUMATIC, NORMOCEPHALIC - Respiratory Exam Respiratory Exam: Clear to Ausculation Bilateral, NORMAL BREATHING PATTERN - Cardiovascular Exam Cardiovascular Exam: +S1, +S2 - GI/Abdominal Exam GI & Abdominal Exam: Soft, Normal Bowel Sounds. absent: Tenderness - Neurological Exam Neurological Exam: Alert, Awake Assessment and Plan - Assessment and Plan (Free Text) Assessment: Left upper extremity paresthesias Gastritis Glaucoma Plan: Patient is complaining of numbness and tingling of left arm. Awaiting neurology and cardiology consults. MRI/MRA Brain and spine pending, R/O cervical radiculopathy vs TIA Carotid ultrasound pending
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
[2017-03-15] MEDS: Dorzolamide 2% Opht Sol 10ml OD SCH ×2 (10:26→17:59)
[2017-03-15] MEDS: COMBIGAN OD SCH (10:28)
--- NOTE | 2017-03-15 11:24 | US ---
PROCEDURE: Bilateral carotid artery duplex ultrasound HISTORY: Carotid stenosis TIA PHYSICIAN(S): Jorge Lozano MD. TECHNIQUE: Duplex sonography and color-flow Doppler were used to evaluate the carotid bifurcations and limited segments of the vertebral arteries bilaterally. FINDINGS: There is moderate smooth hypoechoic heterogeneous plaque noted at the carotid bifurcations bilaterally. The peak systolic velocity in the proximal right internal carotid artery is 171 cm/sec. This corresponds to a 60-79% proximal right ICA stenosis. Severely elevated systolic velocities are noted in the proximal right external carotid artery. There is antegrade flow in the right vertebral artery. The peak systolic velocity in the proximal left internal carotid artery is 93 cm/sec. This corresponds to a 20 to 39% proximal left ICA stenosis. Normal systolic velocities are noted in the proximal left external carotid artery. There is antegrade flow in the left vertebral artery. IMPRESSION: 1. 60-79 percent proximal right ICA stenosis. 2. 20-39 percent proximal left ICA stenosis. 3. Antegrade flow in both vertebral arteries.
[2017-03-15] MEDS ORDERED: Iohexol 350 MG/100 ML VIAL ONE (15:26)
--- NOTE | 2017-03-15 15:26 | CP.PCM.CON ---
<Sam Lovett - Last Filed: 03/15/17 16:44> History of Present Illness - History of Present Illness History of Present Illness: Vascular Surgery Resident: Rachell Attending: Alvarez HPI: Patient is a 76 y/o gentleman who presented to the ER complaining of tingling down his left arm that has since resolved. The symptoms lasted for 3 hours. He admits to one prior episode of numbness and tingling 1 year prior. Patient states that he has had one syncopal episode upon standing after a BM that resulted in a fall. Patient denies any changes in his vision, muscle weakness, lightheadedness, dizziness or headache. PMH: * Gastritis * Gluacoma * Cataracts PSH: None Allergies: NKA Review of Systems - Constitutional Constitutional: As Per HPI - EENT Eyes: As Per HPI Ears: As Per HPI Nose/Mouth/Throat: As Per HPI - Cardiovascular Cardiovascular: As Per HPI - Respiratory Respiratory: As Per HPI - Gastrointestinal Gastrointestinal: As Per HPI - Genitourinary Genitourinary: As Per HPI - Reproductive: Male Reproductive:Male: As Per HPI - Musculoskeletal Musculoskeletal: As Per HPI - Integumentary Integumentary: As Per HPI - Neurological Neurological: As Per HPI - Psychiatric Psychiatric: As Per HPI - Endocrine Endocrine: As Per HPI - Hematologic/Lymphatic Hematologic: As Per HPI Past Patient History - Infectious Disease Hx of Infectious Diseases: None - Tetanus Immunizations Tetanus Immunization: Unknown - Past Medical History & Family History Past Medical History?: Yes - Past Social History Smoking Status: Former Smoker - CARDIAC Hx Hypertension: Yes - PULMONARY Hx Respiratory Disorders: No - NEUROLOGICAL Hx Dizziness: No Hx Migraine: No Hx Syncope: Yes (per HPI) Hx Vertigo: No - HEENT Hx HEENT Problems: Yes Hx Cataracts: Yes Hx Glaucoma: Yes - RENAL Hx Chronic Kidney Disease: No - MUSCULOSKELETAL/RHEUMATOLOGICAL Hx Falls: Yes (Fall in Oct 2015) - PSYCHIATRIC Hx Substance Use: No - SURGICAL HISTORY Hx Cataract Extraction: Yes Meds Allergies/Adverse Reactions: Allergies Allergy/AdvReac Type Severity Reaction Status Date / Time No Known Allergies Allergy Verified 10/24/15 12:55 - Medications Medications: Current Medications Acetaminophen (Tylenol 325mg Tab) 650 mg PO Q6H PRN PRN Reason: Pain, moderate (4-7) Last Admin: 03/14/17 22:54 Dose: 650 mg Aspirin (Ecotrin) 81 mg PO DAILY [facility] Last Admin: 03/15/17 09:34 Dose: 81 mg Atorvastatin Calcium (Lipitor) 40 mg PO DIN [facility] Dorzolamide HCl (Trusopt) 0 ml OD BID [facility] Last Admin: 03/15/17 10:26 Dose: 1 drop Famotidine (Pepcid) 20 mg PO BID [facility] Last Admin: 03/15/17 09:34 Dose: 20 mg Non-Formulary Medication (Combigan 0.2%-0.5% 5 Ml) 1 drop OD DAILY [facility] Last Admin: 03/15/17 10:28 Dose: Not Given Physical Exam - Constitutional Appears: No Acute Distress - Head Exam Head Exam: ATRAUMATIC, NORMAL INSPECTION - Eye Exam Eye Exam: EOMI Pupil Exam: NORMAL ACCOMODATION - ENT Exam ENT Exam: Mucous Membranes Moist - Neck Exam Neck exam: Positive for: Normal Inspection - Respiratory Exam Respiratory Exam: NORMAL BREATHING PATTERN - Cardiovascular Exam Cardiovascular Exam: REGULAR RHYTHM Additional comments: No carotid bruits were appreciated - Neurological Exam Neurological exam: Alert, CN II-XII Intact, Oriented x3 - Psychiatric Exam Psychiatric exam: Normal Affect, Normal Mood - Skin Skin Exam: Intact, Normal Color, Warm Results - Vital Signs Recent Vital Signs: Last Vital Signs Temp 97.1 F L 03/15/17 12:00 Pulse 68 03/15/17 14:00 Resp 20 03/15/17 12:00 BP 135/83 03/15/17 12:00 Pulse Ox 97 03/14/17 23:17 - Labs Result Diagrams: 03/15/17 07:10 03/15/17 07:10 Labs: Laboratory Results - last 24 hr 03/14/17 03/15/17 03/15/17 21:24 07:10 07:10 WBC 9.7 RBC 4.15 Hgb 13.4 L Hct 38.9 L MCV 93.7 MCH 32.3 MCHC 34.4 RDW 14.3 Plt Count 219 MPV 10.2 Gran % 39.5 L Lymph % (Auto) 41.7 H [place] % (Auto) 9.4 H Eos % (Auto) 9.0 H Baso % (Auto) 0.4 Gran # 3.84 Lymph # 4.1 H [place] # 0.9 H Eos # 0.9 H Baso # 0.04 Sodium 142 Potassium 4.8 Chloride 106 Carbon Dioxide 29 Anion Gap 12 BUN 15 Creatinine 1.0 Est GFR ( Amer) > 60 Est GFR (Non-Af Amer) > 60 POC Glucose (mg/dL) 126 H Random Glucose 84 Calcium 9.3 Phosphorus 3.7 Magnesium 2.0 Assessment & Plan - Assessment and Plan (Free Text) Plan: R. Carotid stenosis (60-79%) on Carotid Duplex L. Carotid stenosis (20-39%) on Carotid Duplex * Medical management for cholesterol control * Patient has no Hx of stroke/TIA and is currently asymptomatic. Will follow up CTA * Discussed with Dr. Alvarez Lovett [facility] PGY-1 - Date & Time Date: 03/15/17 Time: 15:58 <Kan Fontenot - Last Filed: 03/15/17 18:00> Meds - Medications Medications: Current Medications Acetaminophen (Tylenol 325mg Tab) 650 mg PO Q6H PRN PRN Reason: Pain, moderate (4-7) Last Admin: 03/14/17 22:54 Dose: 650 mg Aspirin (Ecotrin) 81 mg PO DAILY [facility] Last Admin: 03/15/17 09:34 Dose: 81 mg Atorvastatin Calcium (Lipitor) 40 mg PO DIN [facility] Dorzolamide HCl (Trusopt) 0 ml OD BID [facility] Last Admin: 03/15/17 10:26 Dose: 1 drop Famotidine (Pepcid) 20 mg PO BID [facility] Last Admin: 03/15/17 09:34 Dose: 20 mg Non-Formulary Medication (Combigan 0.2%-0.5% 5 Ml) 1 drop OD DAILY [facility] Last Admin: 03/15/17 10:28 Dose: Not Given Results - Vital Signs Recent Vital Signs: Last Vital Signs Temp 97.1 F L 03/15/17 12:00 Pulse 68 03/15/17 14:00 Resp 20 03/15/17 12:00 BP 135/83 03/15/17 12:00 Pulse Ox 97 03/14/17 23:17 - Labs Result Diagrams: 03/15/17 07:10 03/15/17 07:10 Labs: Laboratory Results - last 24 hr 03/14/17 03/15/17 03/15/17 21:24 07:10 07:10 WBC 9.7 RBC 4.15 Hgb 13.4 L Hct 38.9 L MCV 93.7 MCH 32.3 MCHC 34.4 RDW 14.3 Plt Count 219 MPV 10.2 Gran % 39.5 L Lymph % (Auto) 41.7 H [place] % (Auto) 9.4 H Eos % (Auto) 9.0 H Baso % (Auto) 0.4 Gran # 3.84 Lymph # 4.1 H [place] # 0.9 H Eos # 0.9 H Baso # 0.04 Sodium 142 Potassium 4.8 Chloride 106 Carbon Dioxide 29 Anion Gap 12 BUN 15 Creatinine 1.0 Est GFR ( Amer) > 60 Est GFR (Non-Af Amer) > 60 POC Glucose (mg/dL) 126 H Random Glucose 84 Calcium 9.3 Phosphorus 3.7 Magnesium 2.0 Assessment & Plan - Assessment and Plan (Free Text) Plan: Patient seen and examined. He presents with an episode of tingling and altered sensation with numbness involving left upper extremity. This is one of several similar episodes patient has been experiencing within last six months or so. His deficits resolved within an hour or so by his report. He denies altered level of consciousness, slurred speech, facial droop or vision changes. US is read as 60-79 per cent stenosis involving right internal carotid. I reviewed CT angiogram of the neck - there is evidence of left internal carotid calcific plaque as well as likely carotid soft plaque. These radiological findings and clinical presentation strongly raise possibility of recurrent TIA. Patient will benefit from Plavix which I recommend to be started today. Right carotid endarterectomy is warranted in this situation and was recommended to the patient. He needs time to process this information so we decided to reconvene tomorrow and finalize the plan. I also discussed my recommendations with Internal Medicine resident who will order Plavix. Thank you for this consultation, Kan Fontenot MD
--- NOTE | 2017-03-15 15:56 | MRI ---
PROCEDURE: MR CERVICAL SPINE WITHOUT CONTRAST HISTORY: left arm intermittent paresthesias COMPARISON: None available. TECHNIQUE: Multiecho multiplanar sequences were performed through the cervical spine without the use of intravenous contrast. FINDINGS: Normal lordotic curvature. Craniocervical junction unremarkable. Vertebral body heights preserved. No marrow signal abnormality. Normal cervical cord. No paraspinal abnormality. C2-C3: No disc herniation, spinal canal stenosis or neural foraminal narrowing. C3-C4: No disc herniation, spinal canal stenosis or neural foraminal narrowing. C4-C5: There is a disc bulge in osteophytic ridge producing mild to moderate central stenosis and left-sided foraminal stenosis C5-C6: Disc bulge with osteophytic ridge producing mild central stenosis and bilateral foraminal stenosis right greater than left C6-C7: Disc bulge in degeneration with mild foraminal stenosis C7-T1: No disc herniation, spinal canal stenosis or neural foraminal narrowing. OTHER FINDINGS: None. IMPRESSION: Multilevel disc degeneration with foraminal stenosis. Mild to moderate central stenosis at C4-5
--- NOTE | 2017-03-16 07:23 | CP.PCM.PN ---
Subjective - Date & Time of Evaluation Date of Evaluation: 03/16/17 Time of Evaluation: 07:00 - Subjective Subjective: Patient seen and examined at bedside. Hospital day #4. He is resting comfortably in bed. No acute events overnight. Discussed surgical option for R ICA stenosis in detail and need for terminal carman anticogaulation if surgery is not performed. Patient states he requires additional time to finalize decision for surgery. Denies dizziness, blurry vision, chest pain, SOB, and N/V. Objective - Vital Signs/Intake and Output Vital Signs (last 24 hours): Temp Pulse Resp BP Pulse Ox 98.2 F 80 18 135/82 97 03/16/17 00:06 03/16/17 00:06 03/16/17 00:06 03/16/17 00:06 03/16/17 00:06 - Medications Medications: Current Medications Acetaminophen (Tylenol 325mg Tab) 650 mg PO Q6H PRN PRN Reason: Pain, moderate (4-7) Last Admin: 03/14/17 22:54 Dose: 650 mg Aspirin (Ecotrin) 81 mg PO DAILY [facility] Last Admin: 03/15/17 09:34 Dose: 81 mg Atorvastatin Calcium (Lipitor) 40 mg PO DIN [facility] Last Admin: 03/15/17 17:59 Dose: 40 mg Clopidogrel Bisulfate (Plavix) 75 mg PO DAILY [facility] Dorzolamide HCl (Trusopt) 0 ml OD BID [facility] Last Admin: 03/15/17 17:59 Dose: 1 drop Famotidine (Pepcid) 20 mg PO BID [facility] Last Admin: 03/15/17 17:59 Dose: 20 mg Non-Formulary Medication (Combigan 0.2%-0.5% 5 Ml) 1 drop OD DAILY [facility] Last Admin: 03/15/17 10:28 Dose: Not Given - Labs Labs: 03/15/17 07:10 03/15/17 07:10 PT 11.8 Seconds (9.9-11.8) 03/13/17 20:40 INR 1.09 (0.93-1.08) H 03/13/17 20:40 APTT 28.8 Seconds (23.7-30.8) 03/13/17 20:40 - Additional Findings Additional findings: - Constitutional Appears: Well, Non-toxic, No Acute Distress - Head Exam Head Exam: ATRAUMATIC, NORMAL INSPECTION - Eye Exam Eye Exam: EOMI, Normal appearance. absent: Conjunctival injection - ENT Exam ENT Exam: Mucous Membranes Moist, Normal Exam - Neck Exam Neck Exam: Normal Inspection. absent: Thyromegaly - Respiratory Exam Respiratory Exam: Clear to Ausculation Bilateral. absent: Rales, Rhonchi, Wheezes - Cardiovascular Exam Cardiovascular Exam: REGULAR RHYTHM, +S1, +S2 - GI/Abdominal Exam GI & Abdominal Exam: Soft. absent: Firm, Guarding, Tenderness - Extremities Exam Extremities Exam: Normal Inspection - Neurological Exam Neurological Exam: Alert, Awake Additional comments: patient is awake, alert, responds to verbal stimuli, follows commands, and moves extremities spontaneously - Psychiatric Exam Psychiatric exam: Normal Affect, Normal Mood - Skin Skin Exam: Intact, Warm Assessment and Plan - Assessment and Plan (Free Text) Assessment: Patient is a 76 year old male with a PMHx of htn, hpl, arthritis, gerd , cataracts, and glucoma who was admitted on 03/13/2017 for evaluation and treatment of a left arm tingling and numbness. He is currently admitted under inpatient status hospital day #4. Plan: 1. Left Arm Paraesthesias, details- symptoms resolved in ED, working dx- TIA; CT of head- revealed no acute intracranial findings; R ICA stenosis revealed on carotid duplex, CTA showed calcifications of the R ICA plaque as per vascular surgeon - continue aspirin and statin - continue plavix as per vascular surgery recommendation - Vascular surgery is following, appreciate input, awaiting patient decision on surgical option for treatment of R ICA stenosis - Cardiology is following, appreciate input - Neurology is following, appreciate input 2. HPL - continue statin 3. Htn - stable now, continue to monitor closely off of antihypertensive medications 4. GERD - continue famotidine 5. Glaucoma - continue home dorzolamide 6. PPX - home famotidine - SCD Patient seen, evaluated, and discussed with attending, Dr. Iglesias.
--- NOTE | 2017-03-16 07:59 | CP.PCM.PN ---
<Chris Fiore - Last Filed: 03/16/17 08:12> Subjective - Date & Time of Evaluation Date of Evaluation: 03/16/17 Time of Evaluation: 07:54 - Subjective Subjective: PGY [address] Fontenot Patient seen and examined this morning. No acute events overnight. Patient states he is "feeling great" this morning. He has not felt any numbness, tingling or weakness since the resolution of his last episode prior to arrival. Patient denies any changes in vision, has baseline decreased vision on right side due to glaucoma/cataracts. Patient is tolerating a regular diet. Objective - Vital Signs/Intake and Output Vital Signs (last 24 hours): Temp Pulse Resp BP Pulse Ox 98.2 F 80 18 135/82 97 03/16/17 00:06 03/16/17 00:06 03/16/17 00:06 03/16/17 00:06 03/16/17 00:06 - Medications Medications: Current Medications Acetaminophen (Tylenol 325mg Tab) 650 mg PO Q6H PRN PRN Reason: Pain, moderate (4-7) Last Admin: 03/14/17 22:54 Dose: 650 mg Aspirin (Ecotrin) 81 mg PO DAILY [facility] Last Admin: 03/15/17 09:34 Dose: 81 mg Atorvastatin Calcium (Lipitor) 40 mg PO DIN [facility] Last Admin: 03/15/17 17:59 Dose: 40 mg Clopidogrel Bisulfate (Plavix) 75 mg PO DAILY [facility] Dorzolamide HCl (Trusopt) 0 ml OD BID [facility] Last Admin: 03/15/17 17:59 Dose: 1 drop Famotidine (Pepcid) 20 mg PO BID [facility] Last Admin: 03/15/17 17:59 Dose: 20 mg Non-Formulary Medication (Combigan 0.2%-0.5% 5 Ml) 1 drop OD DAILY [facility] Last Admin: 03/15/17 10:28 Dose: Not Given - Labs Labs: 03/15/17 07:10 03/15/17 07:10 PT 11.8 Seconds (9.9-11.8) 03/13/17 20:40 INR 1.09 (0.93-1.08) H 03/13/17 20:40 APTT 28.8 Seconds (23.7-30.8) 03/13/17 20:40 - Constitutional Appears: Non-toxic, No Acute Distress - Head Exam Head Exam: ATRAUMATIC, NORMOCEPHALIC - Eye Exam Eye Exam: EOMI, PERRL Pupil Exam: PERRL - ENT Exam ENT Exam: Mucous Membranes Moist - Cardiovascular Exam Cardiovascular Exam: REGULAR RHYTHM, +S1, +S2 - Neurological Exam Neurological Exam: Alert, Awake, CN II-XII Intact, Normal Gait, Oriented x3 Neuro motor strength exam: Left Upper Extremity: 5, Right Upper Extremity: 5, Left Lower Extremity: 5, Right Lower Extremity: 5 - Psychiatric Exam Psychiatric exam: Normal Affect, Normal Mood - Skin Skin Exam: Dry, Intact, Normal Color, Warm Assessment and Plan - Assessment and Plan (Free Text) Assessment: 76 year old male here for evaluation and treatment of a left arm tingling and numbness. Plan: Patient is undecided on if he wants surgery. - 60-79% stenosis of proximal ICA on carotid US on 03/14/2017 - continue ASA and plavix Will discuss with attending for further recommendations. <Kan Fontenot - Last Filed: 03/16/17 17:50> Objective - Vital Signs/Intake and Output Vital Signs (last 24 hours): Temp Pulse Resp BP Pulse Ox 97.5 F L 68 20 116/76 99 03/16/17 08:17 03/16/17 08:17 03/16/17 08:17 03/16/17 08:17 03/16/17 08:17 - Medications Medications: Current Medications Acetaminophen (Tylenol 325mg Tab) 650 mg PO Q6H PRN PRN Reason: Pain, moderate (4-7) Last Admin: 03/14/17 22:54 Dose: 650 mg Aspirin (Ecotrin) 81 mg PO DAILY [facility] Last Admin: 03/16/17 09:03 Dose: 81 mg Atorvastatin Calcium (Lipitor) 40 mg PO DIN [facility] Last Admin: 03/15/17 17:59 Dose: 40 mg Clopidogrel Bisulfate (Plavix) 75 mg PO DAILY [facility] Dorzolamide HCl (Trusopt) 0 ml OD BID [facility] Last Admin: 03/16/17 09:02 Dose: 1 drop Famotidine (Pepcid) 20 mg PO BID [facility] Last Admin: 03/16/17 09:03 Dose: 20 mg Non-Formulary Medication (Combigan 0.2%-0.5% 5 Ml) 1 drop OD DAILY [facility] Last Admin: 03/16/17 09:02 Dose: 1 drop - Labs Labs: 03/16/17 07:00 03/16/17 07:00 PT 11.8 Seconds (9.9-11.8) 03/13/17 20:40 INR 1.09 (0.93-1.08) H 03/13/17 20:40 APTT 28.8 Seconds (23.7-30.8) 03/13/17 20:40 Assessment and Plan - Assessment and Plan (Free Text) Plan: Patient seen and examined. This is equivocal situation which I discussed with the patient and his family at length and in detail. Recurrent altered sensation in patient's left arm and hand which was significant enough for him to refer to ER in view of abnormal carotid US and right-sided findings on the CTA raised my suspicion of TIA. CTA is read by the attending radiologist as 40% internal carotid stenosis which is a ooit less severe than high-grade stenosis suggested by the ultrasound. There is, however, internal carotid calcification exclusively on the right as well as likely soft plaque in the right common carotid. I also appreciate Neurologist Dr. Cabrera's opinion that this presentation is more in line with peripheral nerve issues from compression especially since patient has supporting evidence on MRI. All together, given somewhat controversial evidence I feel that starting patient on dual anti-platelet therapy including Aspirin and Plavix and watchful observation is a reasonable approach and this is what the patient and his family prefer. I will see Mr. Baum as an outpatient in one month and follow his progress closely. I asked the patient to refer to the ER immediately should his symptoms recur. Referral to learning operations specialist to assess nerve compression might be beneficial. I appreciate the opportunity to participate in Mr. Baum's care, Kan Fontenot MD.
[2017-03-16 08:00] LABS: BASO # 0.03 K/mm3 (0.0-2.0); BASO % 0.3 % (0.0-3.0); EOS # 1.1 (0.0-0.7); EOS % 9.7 % (1.5-5.0); GRAN # 4.77 (1.4-6.5); GRAN % 43.7 % (50.0-68.0); HEMOGLOBIN 14.1 gm/dL (14.0-18.0); LYMPH # 4.1 (1.2-3.4); LYMPH % 37.9 % (22.0-35.0); MEAN CELL VOLUME 93.6 fL (80.0-105.0); MEAN CORPUSCULAR HEMOGLOBIN 32.2 pg (25.0-35.0); MEAN CORPUSCULAR HGB CONC 34.4 g/dl (31.0-37.0); MEAN PLATELET VOLUME 10.1 fl (7.0-11.0); MONO # 0.9 (0.1-0.6); MONO % 8.4 % (1.0-6.0); PLATELET COUNT 227 10^3/uL (120.0-450.0); RBC 4.38 10^6/uL (3.5-6.1); RED CELL DISTRIBUTION WIDTH 14.2 % (11.5-14.5); WHITE BLOOD COUNT 10.9 10^3/ul (4.5-11.0)
[2017-03-16] MEDS ORDERED: Gadodiamide 287 MG/ML VIAL (20ML) IV ONE (08:02)
[2017-03-16 08:17] LABS: BLOOD UREA NITROGEN 16 mg/dL (7-21); CALCIUM 9.5 mg/dL (8.4-10.5); GFR AFRICAN-AMERICAN > 60; GFR NON-AFRICAN AMERICAN > 60; MAGNESIUM 2.2 mg/dL (1.7-2.2)
--- NOTE | 2017-03-16 08:30 | CP.PCM.PN ---
Subjective - Date & Time of Evaluation Date of Evaluation: 03/16/17 Time of Evaluation: 07:30 - Subjective Subjective: (covering for Dr. Garcia) Patient is seen this morning. He says he is doing well. He has no specific complaints. Objective - Vital Signs/Intake and Output Vital Signs (last 24 hours): Temp Pulse Resp BP Pulse Ox 97.5 F L 68 20 116/76 99 03/16/17 08:17 03/16/17 08:17 03/16/17 08:17 03/16/17 08:17 03/16/17 08:17 - Medications Medications: Current Medications Acetaminophen (Tylenol 325mg Tab) 650 mg PO Q6H PRN PRN Reason: Pain, moderate (4-7) Last Admin: 03/14/17 22:54 Dose: 650 mg Aspirin (Ecotrin) 81 mg PO DAILY [facility] Last Admin: 03/15/17 09:34 Dose: 81 mg Atorvastatin Calcium (Lipitor) 40 mg PO DIN [facility] Last Admin: 03/15/17 17:59 Dose: 40 mg Clopidogrel Bisulfate (Plavix) 75 mg PO DAILY [facility] Dorzolamide HCl (Trusopt) 0 ml OD BID [facility] Last Admin: 03/15/17 17:59 Dose: 1 drop Famotidine (Pepcid) 20 mg PO BID [facility] Last Admin: 03/15/17 17:59 Dose: 20 mg Non-Formulary Medication (Combigan 0.2%-0.5% 5 Ml) 1 drop OD DAILY [facility] Last Admin: 03/15/17 10:28 Dose: Not Given - Labs Labs: 03/16/17 07:00 03/16/17 07:00 PT 11.8 Seconds (9.9-11.8) 03/13/17 20:40 INR 1.09 (0.93-1.08) H 03/13/17 20:40 APTT 28.8 Seconds (23.7-30.8) 03/13/17 20:40 - Constitutional Appears: No Acute Distress - Head Exam Head Exam: ATRAUMATIC, NORMOCEPHALIC - Respiratory Exam Respiratory Exam: Clear to Ausculation Bilateral, NORMAL BREATHING PATTERN - Cardiovascular Exam Cardiovascular Exam: +S1, +S2 - GI/Abdominal Exam GI & Abdominal Exam: Soft, Normal Bowel Sounds. absent: Tenderness - Extremities Exam Extremities Exam: Normal Inspection - Neurological Exam Neurological Exam: Alert, Awake, Oriented x3 Assessment and Plan - Assessment and Plan (Free Text) Assessment: Carotid Artery disease Left upper extremity paresthesias Gastritis Plan: Carotid artery ultrasound shows right carotid artery stenosis of 60-79%. Patient has been evaluated by vascular surgery. He is on statin and plavix. Awaiting results of MRI Brain, CT Angio, and Echocardiogram. If negative and patient is not to have carotid surgery, then discharge home.
--- NOTE | 2017-03-16 08:49 | MRI ---
PROCEDURE: MRI BRAIN WITH AND WITHOUT CONTRAST HISTORY: left arm paresthesias COMPARISON: None. TECHNIQUE: Multiplanar, multisequence MR images of the brain were obtained with and without intravenous contrast enhancement. 20 cc of Omniscan FINDINGS: HEMORRHAGE: None DWI: No evidence of an acute or early subacute infarction. BRAIN PARENCHYMA: No mass,mass effect or edema. Chronic microvascular changes are seen in the subcortical white matter. There are no acute findings ENHANCEMENT: No abnormal intracranial enhancement. VENTRICLES: Unremarkable. No hydrocephalus. CRANIUM: Unremarkable. ORBITS: Grossly unremarkable. PARANASAL SINUSES/MASTOIDS: Clear VASCULAR SYSTEM: Skull base flow voids intact. OTHER FINDINGS: None . IMPRESSION: No acute intracranial findings
[2017-03-16] MEDS: Dorzolamide 2% Opht Sol 10ml OD SCH ×2 (09:02→17:55)
[2017-03-16] MEDS: COMBIGAN OD SCH (09:02)
--- NOTE | 2017-03-16 09:06 | CARD ---
APPROVED REPORT EXAM: Two-dimensional and M-mode echocardiogram with Doppler and color Doppler. Other Information Quality : GoodRhythm : INDICATION CVA/TIA 2D DIMENSIONS Left Atrium (2D)4.0 (1.6-4.0cm)IVSd1.2 (0.7-1.1cm) LVDd4.6 (3.9-5.9cm)PWd1.2 (0.7-1.1cm) LVDs3.4 (2.5-4.0cm)FS (%) 27.2 % LVEF (%)53.0 (>50%) M-Mode DIMENSIONS Aortic Root3.60 (2.2-3.7cm)Aortic Cusp Exc.1.90 (1.5-2.0cm) Aortic Valve AoV Peak Thadvggj526.0cm/s Mitral Valve MV E Sbuqvuqz14.6cm/sMV A Huvleuqv78.9cm/sE/A ratio0.8 TDI E/Lateral E'0.0E/Medial E'0.0 Tricuspid Valve TR Peak Vmydfufc028xt/sRAP [id number] Peak Gr.8mmHg [id number] LEFT VENTRICLE The left ventricle is normal size. There is normal left ventricular wall thickness. The left ventricular function is normal. The left ventricular ejection fraction is within the normal range. There is normal LV segmental wall motion. RIGHT VENTRICLE The right ventricle is normal size. ATRIA The left atrium size is normal. The right atrium size is normal. The interatrial septum is intact with no evidence for an atrial septal defect. AORTIC VALVE The aortic valve is mildly calcified. MITRAL VALVE The mitral valve is normal in structure. TRICUSPID VALVE The tricuspid valve is normal in structure. There is trace tricuspid regurgitation. PULMONIC VALVE The pulmonary valve is normal in structure. GREAT VESSELS The aortic root is normal in size. PERICARDIAL EFFUSION There is no pericardial effusion. <Conclusion> The left ventricle is normal size. There is normal left ventricular wall thickness. The left ventricular function is normal.
--- NOTE | 2017-03-16 12:42 | CT ---
PROCEDURE: CT Angiography of the neck with contrast HISTORY: 60-79 right ICA stenosis. COMPARISON: Doppler ultrasound report 03/15/2017 which showed mild stenosis in both internal carotids TECHNIQUE: Contiguous axial images of the neck were obtained from the level of the skull-base to the superior mediastinum in the arteriographic phase of enhancement. Coronal and sagittal reformats or also generated. IV contrast dose: 100 cc of Omni 350 Radiation Dose - DLP: 465 mGy-cm This CT exam was performed using one or more of the following dose reduction techniques: Automated exposure control, adjustment of the mA and/or kV according to patient size, and/or use of iterative reconstruction technique. FINDINGS: RIGHT CAROTID ARTERIES: Common Carotid Artery: There is a mild approximately 40 percent stenosis of the distal common carotid at the level of bifurcation. Internal Carotid Artery:There is a calcified plaque in the internal carotid 15 mm from the origin. No significant stenosis External Carotid Artery (proximal branches): Normal. LEFT CAROTID ARTERIES: Common Carotid Artery: Normal. Internal Carotid Artery:There is a mild stenosis with calcified plaque in the internal carotid 15 mm from the origin. The degree of stenosis is probably less than 40 percent External Carotid Artery (proximal branches): Normal. VERTEBRAL ARTERIES: Right Vertebral Artery: Normal. Left Vertebral Artery: Dominant OTHER FINDINGS: None. IMPRESSION: Mild stenosis in both carotid arteries as described above. No significant stenosis or occlusion. No evidence of thrombus
--- NOTE | 2017-03-16 12:43 | CP.PCM.PN ---
<Karen Lomeli - Last Filed: 03/16/17 13:00> Subjective - Date & Time of Evaluation Date of Evaluation: 03/16/17 Time of Evaluation: 11:30 - Subjective Subjective: PGY-2 neurology follow up for Dr Cabrera. Patient seen, and examined at bed side. Patient has no complains. Reports the paresthesia has not reoccurred. Denies cp, sob, n/v/d. Objective - Vital Signs/Intake and Output Vital Signs (last 24 hours): Temp Pulse Resp BP Pulse Ox 97.5 F L 68 20 116/76 99 03/16/17 08:17 03/16/17 08:17 03/16/17 08:17 03/16/17 08:17 03/16/17 08:17 - Medications Medications: Current Medications Acetaminophen (Tylenol 325mg Tab) 650 mg PO Q6H PRN PRN Reason: Pain, moderate (4-7) Last Admin: 03/14/17 22:54 Dose: 650 mg Aspirin (Ecotrin) 81 mg PO DAILY [facility] Last Admin: 03/16/17 09:03 Dose: 81 mg Atorvastatin Calcium (Lipitor) 40 mg PO DIN [facility] Last Admin: 03/15/17 17:59 Dose: 40 mg Clopidogrel Bisulfate (Plavix) 75 mg PO DAILY [facility] Dorzolamide HCl (Trusopt) 0 ml OD BID [facility] Last Admin: 03/16/17 09:02 Dose: 1 drop Famotidine (Pepcid) 20 mg PO BID [facility] Last Admin: 03/16/17 09:03 Dose: 20 mg Non-Formulary Medication (Combigan 0.2%-0.5% 5 Ml) 1 drop OD DAILY [facility] Last Admin: 03/16/17 09:02 Dose: 1 drop - Labs Labs: 03/16/17 07:00 03/16/17 07:00 PT 11.8 Seconds (9.9-11.8) 03/13/17 20:40 INR 1.09 (0.93-1.08) H 03/13/17 20:40 APTT 28.8 Seconds (23.7-30.8) 03/13/17 20:40 - Constitutional Appears: No Acute Distress - Head Exam Head Exam: ATRAUMATIC, NORMAL INSPECTION, NORMOCEPHALIC - ENT Exam ENT Exam: Mucous Membranes Moist - Neck Exam Neck Exam: Full ROM, Tenderness (c spine ) - Respiratory Exam Respiratory Exam: Clear to Ausculation Bilateral, NORMAL BREATHING PATTERN. absent: Rhonchi, Wheezes, Respiratory Distress - Cardiovascular Exam Cardiovascular Exam: REGULAR RHYTHM, +S1, +S2 - GI/Abdominal Exam GI & Abdominal Exam: Soft, Normal Bowel Sounds. absent: Distended, Tenderness - Extremities Exam Extremities Exam: absent: Pedal Edema - Neurological Exam Neurological Exam: Alert, Awake, Oriented x3 Neuro motor strength exam: Left Upper Extremity: 5, Right Upper Extremity: 5, Left Lower Extremity: 5, Right Lower Extremity: 5 Additional comments: Mental status: Patient is a&ox3, speech is fluent, and articulates well. Normal affective states. Attention, thought process and insight and judgment are appropriate. Cranial nerve: CNII-CNXII- Perrla, VFF by confrontation, EMOI, no nystagamus, no ptosis, sensation intact to light touch. [place] muscles strong symmetrically, no facial asymmetry, hearing grossly intact. Tongue protrude midline, no atrophy or fasciculation. Sensory: fine tough, pp temperature, vibration sensations and proprioceptive functions intact. There is no evidence of extinction to DSS. Normal cortical sensory function. Motor exam: normal bulk and tone. Strength is full in all 4 extremities. Cerebellar: No active resting tremors. Rapid alternating movement intact. gait not assessed at this time. Reflex: deep tendon reflex were plus 2 throughout with flexor plantar response b/l. - Psychiatric Exam Psychiatric exam: Normal Affect, Normal Mood - Skin Skin Exam: Dry, Intact, Normal Color, Warm Assessment and Plan - Assessment and Plan (Free Text) Assessment: Patient is 76 year old male with history of glaucoma, cataracts, arthritis, pre- DM who came in with an episode of non-radiating left dorsal forearm paresthesias. CT angio of the neck revealed mild b/l stenosis of carotid arteries, no significant stenosis or occlusion. Impression: Symptoms are not focal in line of TIA. Possible C5 radiculopathy on the left side C-spine MRI finding. Plan: - Medical management with Lipitor and asa. Started on plavix as per vascular surgery. - Consider Gabapentin 300mg HS if paresthesia persists. - Can follow up outpatient neurology for EMG/NDS. - Consider outpatient PT for neck tightness for DJD. - Follow up with vascular - Stable from neuro's perspective - Thank you for consulting Dr Cabrera. Please re-consult again if needed. Patient seen, examined, and case discussed with Dr Cabrera. <Grant Cabrera - Last Filed: 03/16/17 17:05> Objective - Vital Signs/Intake and Output Vital Signs (last 24 hours): Temp Pulse Resp BP Pulse Ox 97.5 F L 68 20 116/76 99 03/16/17 08:17 03/16/17 08:17 03/16/17 08:17 03/16/17 08:17 03/16/17 08:17 - Medications Medications: Current Medications Acetaminophen (Tylenol 325mg Tab) 650 mg PO Q6H PRN PRN Reason: Pain, moderate (4-7) Last Admin: 03/14/17 22:54 Dose: 650 mg Aspirin (Ecotrin) 81 mg PO DAILY [facility] Last Admin: 03/16/17 09:03 Dose: 81 mg Atorvastatin Calcium (Lipitor) 40 mg PO DIN [facility] Last Admin: 03/15/17 17:59 Dose: 40 mg Clopidogrel Bisulfate (Plavix) 75 mg PO DAILY [facility] Dorzolamide HCl (Trusopt) 0 ml OD BID [facility] Last Admin: 03/16/17 09:02 Dose: 1 drop Famotidine (Pepcid) 20 mg PO BID [facility] Last Admin: 03/16/17 09:03 Dose: 20 mg Non-Formulary Medication (Combigan 0.2%-0.5% 5 Ml) 1 drop OD DAILY [facility] Last Admin: 03/16/17 09:02 Dose: 1 drop - Labs Labs: 03/16/17 07:00 03/16/17 07:00 PT 11.8 Seconds (9.9-11.8) 03/13/17 20:40 INR 1.09 (0.93-1.08) H 03/13/17 20:40 APTT 28.8 Seconds (23.7-30.8) 03/13/17 20:40 Attending/Attestation - Attestation I have personally seen and examined this patient.: Yes I have fully participated in the care of the patient.: Yes I have reviewed all pertinent clinical information, including history, physical exam and plan: Yes
[2017-03-16 17:38] VITALS: BP 140/80; PULSE 60; RESP 18; TEMP 97; O2SAT 98
--- NOTE | 2017-03-17 09:31 | CP.PCM.DIS ---
Provider - Provider Date of Admission: 03/13/17 18:00 Attending physician: Juice Garcia MD Primary care physician: Corie Covington MD Time Spent in preparation of Discharge (in minutes): 30 Diagnosis - Discharge Diagnosis (1) Carotid stenosis Status: Acute Priority: High (2) TIA (transient ischemic attack) Status: Resolved Priority: Medium Hospital Course - Lab Results Lab Results: Most Recent Lab Values WBC 10.9 10^3/ul (4.5-11.0) 03/16/17 07:00 RBC 4.38 10^6/uL (3.5-6.1) 03/16/17 07:00 Hgb 14.1 gm/dL (14.0-18.0) 03/16/17 07:00 Hct 41.0 % (42.0-52.0) L 03/16/17 07:00 MCV 93.6 fL (80.0-105.0) 03/16/17 07:00 MCH 32.2 pg (25.0-35.0) 03/16/17 07:00 MCHC 34.4 g/dl (31.0-37.0) 03/16/17 07:00 RDW 14.2 % (11.5-14.5) 03/16/17 07:00 Plt Count 227 10^3/uL (120.0-450.0) 03/16/17 07:00 MPV 10.1 fl (7.0-11.0) 03/16/17 07:00 Gran % 43.7 % (50.0-68.0) L 03/16/17 07:00 Lymph % (Auto) 37.9 % (22.0-35.0) H 03/16/17 07:00 [place] % (Auto) 8.4 % (1.0-6.0) H 03/16/17 07:00 Eos % (Auto) 9.7 % (1.5-5.0) H 03/16/17 07:00 Baso % (Auto) 0.3 % (0.0-3.0) 03/16/17 07:00 Gran # 4.77 (1.4-6.5) 03/16/17 07:00 Lymph # 4.1 (1.2-3.4) H 03/16/17 07:00 [place] # 0.9 (0.1-0.6) H 03/16/17 07:00 Eos # 1.1 (0.0-0.7) H 03/16/17 07:00 Baso # 0.03 K/mm3 (0.0-2.0) 03/16/17 07:00 ESR 17 mm/hr (0.00-15.0) H 03/14/17 08:55 PT 11.8 Seconds (9.9-11.8) 03/13/17 20:40 INR 1.09 (0.93-1.08) H 03/13/17 20:40 APTT 28.8 Seconds (23.7-30.8) 03/13/17 20:40 Sodium 142 mmol/L (132-148) 03/16/17 07:00 Potassium 4.6 mmol/L (3.6-5.0) 03/16/17 07:00 Chloride 103 mmol/L (95-110) 03/16/17 07:00 Carbon Dioxide 29 mmol/L (21-33) 03/16/17 07:00 Anion Gap 15 (10-20) 03/16/17 07:00 BUN 16 mg/dL (7-21) 03/16/17 07:00 Creatinine 1.0 mg/dL (0.5-1.4) 03/16/17 07:00 Est GFR ( Amer) > 60 03/16/17 07:00 Est GFR (Non-Af Amer) > 60 03/16/17 07:00 POC Glucose (mg/dL) 126 mg/dL (65-110) H 03/14/17 21:24 Random Glucose 98 mg/dL (70-110) 03/16/17 07:00 Hemoglobin A1c 6.1 % (4.2-6.5) 03/13/17 20:40 Calcium 9.5 mg/dL (8.4-10.5) 03/16/17 07:00 Phosphorus 3.7 mg/dL (2.5-4.5) 03/16/17 07:00 Magnesium 2.2 mg/dL (1.7-2.2) 03/16/17 07:00 Total Bilirubin 0.4 mg/dL (0.2-1.3) 03/14/17 03:40 AST 23 U/L (15-59) 03/14/17 03:40 ALT 22 U/L (7-56) 03/14/17 03:40 Alkaline Phosphatase 74 U/L (38-133) 03/14/17 03:40 Troponin I < 0.01 ng/mL 03/14/17 08:23 C-React Prot High Sens 3.69 mg/L (1.00-3.00) H 03/14/17 08:55 Total Protein 7.3 g/dL (5.8-8.3) 03/14/17 03:40 Albumin 3.9 g/dL (3.0-4.8) 03/14/17 03:40 Globulin 3.4 gm/dL 03/14/17 03:40 Albumin/Globulin Ratio 1.1 (1.1-1.8) 03/14/17 03:40 Triglycerides 107 mg/dL (35-160) 03/13/17 20:40 Cholesterol 116 mg/dL (130-200) L 03/13/17 20:40 LDL Cholesterol Direct 63 mg/dL (0-129) 03/13/17 20:40 HDL Cholesterol 34 mg/dL (29-60) 03/13/17 20:40 Vitamin B12 646 pg/mL (239-931) 03/14/17 08:55 Folate > 20.0 ng/mL 03/14/17 08:55 Free T4 1.23 ng/dL (0.78-2.19) 03/14/17 08:55 Thyroxine (T4) 7.9 ug/dL (5.5-11.0) 03/14/17 08:55 Total T3 1.38 ng/mL (0.97-1.69) 03/14/17 08:55 TSH 3rd Generation 1.66 mIU/mL (0.46-4.68) 03/14/17 08:55 Urine Color Yellow (YELLOW) 03/13/17 21:28 Urine Appearance Clear (CLEAR) 03/13/17 21:28 Urine pH 7.5 (4.7-8.0) 03/13/17 21:28 Ur Specific [place] 1.010 (1.005-1.035) 03/13/17 21:28 Urine Protein Negative mg/dL (<30 mg/dL) 03/13/17 21:28 Urine Glucose (UA) Negative mg/dL (NEGATIVE) 03/13/17 21:28 Urine Ketones Negative mg/dL (NEGATIVE) 03/13/17 21:28 Urine Blood Trace-lysed (NEGATIVE) H 03/13/17 21:28 Urine Nitrate Negative (NEGATIVE) 03/13/17 21:28 Urine Bilirubin Negative (NEGATIVE) 03/13/17 21:28 Urine Urobilinogen 0.2 E.U./dL (<1 E.U./dL) 03/13/17 21:28 Ur Leukocyte Esterase Negative [place]/uL (NEGATIVE) 03/13/17 21:28 Urine RBC 1 - 3 /hpf (0-2) 03/13/17 21:28 Urine WBC 0 - 2 /hpf (0-6) 03/13/17 21:28 Ur Epithelial Cells 0 - 2 /hpf (0-5) 03/13/17 21:28 Blood Type O POSITIVE 03/13/17 20:40 Blood Type Confirm O POSITIVE 03/13/17 21:42 Antibody Screen Negative 03/13/17 20:40 BBK History Checked No verified bt 03/13/17 20:40 - Hospital Course Hospital Course: Patient is a 76 year old male with a PMHx of htn, hpl, arthritis, gerd , cataracts, and glucoma who was admitted on 03/13/2017 for evaluation and treatment of a left arm tingling and numbness. Patient was admitted under observation status , switched to inpatient status, and spent a total of four days in the hospital where he was seen, evaluated, and treated by the primary care team, cardiology, and vascular surgery. During his visit the patient underwent imaging which revealed a R carotid 60-79% stenosis on Carotid Duplex ( 20-39% on the left carotid). Additionally an MRI/MRA of the head and cervical canal were obtained revealing no acute process, notable for Multilevel disc degeneration with foraminal stenosis, and mild to moderate central stenosis at C4-5. As per vascular surgery team, surgical intervention is warranted, however the patient elected to not have surgery at this time. Patient is now stable and cleared for discharge by all healthcare network consultant services. Patient instructed to follow up with his primary care physician and vascular surgeon on an outpatient basis within 1 month. Patient also instructed to take discharge medications as prescribed. Additionally, he was instructed to return to ED for evaluation of fever, chills, dizziness, chest pain, SOB, intractable nausea/vomitting, and any neurological deficits. Patient is understands and is agreeable to plan. Patient discussed with attending, Dr. Iglesias. Discharge Exam - Head Exam Head Exam: ATRAUMATIC, NORMAL INSPECTION, NORMOCEPHALIC - Additional Findings Additional findings: - Constitutional Appears: Well, Non-toxic, No Acute Distress - Head Exam Head Exam: ATRAUMATIC, NORMAL INSPECTION - Eye Exam Eye Exam: EOMI, Normal appearance. absent: Conjunctival injection - ENT Exam ENT Exam: Mucous Membranes Moist, Normal Exam - Neck Exam Neck Exam: Normal Inspection. absent: Thyromegaly - Respiratory Exam Respiratory Exam: Clear to Ausculation Bilateral. absent: Rales, Rhonchi, Wheezes - Cardiovascular Exam Cardiovascular Exam: REGULAR RHYTHM, +S1, +S2 - GI/Abdominal Exam GI & Abdominal Exam: Soft. absent: Firm, Guarding, Tenderness - Extremities Exam Extremities Exam: Normal Inspection - Neurological Exam Neurological Exam: Alert, Awake Additional comments: patient is awake, alert, responds to verbal stimuli, follows commands, and moves extremities spontaneously - Psychiatric Exam Psychiatric exam: Normal Affect, Normal Mood - Skin Skin Exam: Intact, Warm Discharge Plan - Discharge Medications Prescriptions: Aspirin [Ecotrin] 81 mg PO DAILY #30 Clopidogrel [Plavix] 75 mg PO DAILY #30 tab - Follow Up Plan Condition: STABLE Disposition: HOME/ ROUTINE Instructions: Transient Ischemic Attack (DC), Ischemic Stroke (GEN), Hemorrhagic Stroke (DC) Additional Instructions: If you experience any chest pain, any shortness of breath, intense pain, or any signs of stroke, go see Dr. Garcia in his office, go to the nearest emergency room, or call 911. Follow up with Dr. Garcia. call office for an appointment. Referrals: Juice Garcia MD [Staff Provider] - Quan Cabrera MD [Staff Provider] -
[2017-03-17 20:40] LABS: GLYCOMARK(R) 5.2 mcg/mL (7.3-36.6)
--- NOTE | 2017-03-22 16:31 | CP.PCM.CON ---
History of Present Illness - History of Present Illness History of Present Illness: Patient is asymptomatic, no SOB, no CP. Review of Systems - Cardiovascular Cardiovascular: absent: Chest Pain - Respiratory Respiratory: absent: Dyspnea Past Patient History - Infectious Disease Hx of Infectious Diseases: None - Tetanus Immunizations Tetanus Immunization: Unknown - Past Medical History & Family History Past Medical History?: Yes - Past Social History Smoking Status: Former Smoker - CARDIAC Hx Hypertension: Yes - PULMONARY Hx Respiratory Disorders: No - NEUROLOGICAL Hx Dizziness: No Hx Migraine: No Hx Syncope: Yes (per HPI) Hx Vertigo: No - HEENT Hx HEENT Problems: Yes Hx Cataracts: Yes Hx Glaucoma: Yes - RENAL Hx Chronic Kidney Disease: No - MUSCULOSKELETAL/RHEUMATOLOGICAL Hx Falls: Yes (Fall in Oct 2015) - GASTROINTESTINAL Hx Gastrointestinal Disorders: Yes Hx Gastroesophageal Reflux: Yes - GENITOURINARY/GYNECOLOGICAL Hx Prostate Problems: Yes - PSYCHIATRIC Hx Substance Use: No - SURGICAL HISTORY Hx Cataract Extraction: Yes - ANESTHESIA Hx Anesthesia: Yes Hx Anesthesia Reactions: No Hx Malignant Hyperthermia: No Meds Home Medications: Home Medication List Medication Instructions Recorded Confirmed Type Aspirin [Ecotrin] 81 mg PO DAILY #30 03/16/17 Rx Clopidogrel [Plavix] 75 mg PO DAILY #30 tab 03/16/17 Rx Allergies/Adverse Reactions: Allergies Allergy/AdvReac Type Severity Reaction Status Date / Time No Known Allergies Allergy Verified 10/24/15 12:55 Physical Exam - Neck Exam Additional comments: Negative JVD - Respiratory Exam Respiratory Exam: Decreased Breath Sounds - Cardiovascular Exam Cardiovascular Exam: +S1, +S2 - Extremities Exam Extremities exam: Negative for: pedal edema Results - Vital Signs Recent Vital Signs: 03/16/17: BP: 116/76 HEART: 60s Last Vital Signs Temp 97 F L 03/16/17 16:00 Pulse 60 03/16/17 16:00 Resp 18 03/16/17 16:00 BP 140/80 03/16/17 16:00 Pulse Ox 98 03/16/17 16:00 - Labs Result Diagrams: 03/16/17 07:00 03/16/17 07:00 Labs: 03/16/17: Hemoglobin: 14.1 CHEMISTRY: Unremarkable - Impressions Impression: Echocardiogram revealed normal LB function with no pulmonary HTN. Assessment & Plan - Assessment and Plan (Free Text) Assessment: 1) The patient stress test done a year ago was unremarkable, Echocardiogram unremarkable Plan: From a Cardiac perspective, no further workup is necessary. - Date & Time Date: 03/16/17
--- NOTE | 2017-03-22 18:35 | CP.PCM.CON ---
History of Present Illness - History of Present Illness History of Present Illness: The patient is a 76 year old male who presents with transient left arm numbness which is completely resolved. The patient's past medical history is notable for hypercholesterolemia treated with Atorvastatin. In addition, the patient is treated for mild hypertension without medications. Negative Diabetes Mellitus is noted. No previous cardiac history is noted. Social history: The patient denies smoking. Review of Systems - Review of Systems All systems: reviewed and no additional remarkable complaints except (No cardiac symptomatology noted.) Past Patient History - Infectious Disease Hx of Infectious Diseases: None - Tetanus Immunizations Tetanus Immunization: Unknown - Past Medical History & Family History Past Medical History?: Yes - Past Social History Smoking Status: Former Smoker - CARDIAC Hx Hypertension: Yes - PULMONARY Hx Respiratory Disorders: No - NEUROLOGICAL Hx Dizziness: No Hx Migraine: No Hx Syncope: Yes (per HPI) Hx Vertigo: No - HEENT Hx HEENT Problems: Yes Hx Cataracts: Yes Hx Glaucoma: Yes - RENAL Hx Chronic Kidney Disease: No - MUSCULOSKELETAL/RHEUMATOLOGICAL Hx Falls: Yes (Fall in Oct 2015) - GASTROINTESTINAL Hx Gastrointestinal Disorders: Yes Hx Gastroesophageal Reflux: Yes - GENITOURINARY/GYNECOLOGICAL Hx Prostate Problems: Yes - PSYCHIATRIC Hx Substance Use: No - SURGICAL HISTORY Hx Cataract Extraction: Yes - ANESTHESIA Hx Anesthesia: Yes Hx Anesthesia Reactions: No Hx Malignant Hyperthermia: No Meds Home Medications: Home Medication List Medication Instructions Recorded Confirmed Type Aspirin [Ecotrin] 81 mg PO DAILY #30 03/16/17 Rx Clopidogrel [Plavix] 75 mg PO DAILY #30 tab 03/16/17 Rx Allergies/Adverse Reactions: Allergies Allergy/AdvReac Type Severity Reaction Status Date / Time No Known Allergies Allergy Verified 10/24/15 12:55 Physical Exam - Constitutional Additional comments: BP 138/80, HR 70, NSR - Cardiovascular Exam Cardiovascular Exam: +S1, +S2. absent: Diastolic murmur, Gallop, JVD, Systolic Murmur - GI/Abdominal Exam GI & Abdominal Exam: absent: Bruit - Extremities Exam Additional comments: No Edema Results - Vital Signs Recent Vital Signs: Last Vital Signs Temp 97 F L 03/16/17 16:00 Pulse 60 03/16/17 16:00 Resp 18 03/16/17 16:00 BP 140/80 03/16/17 16:00 Pulse Ox 98 03/16/17 16:00 - Labs Result Diagrams: 03/16/17 07:00 03/16/17 07:00 Labs: Hemoglobin: 13.4 Chemistries: Troponin: negative x1, Glucose: 126, Thyroid Function Test: unremarkable - EKG Data EKG Interpreted by: Myself EKG shows normal: Sinus rhythm Rate: Normal - EKG Data EKG comments: without acute changes Assessment & Plan (1) Borderline hypertension Status: Acute (2) Hypercholesterolemia Status: Acute - Assessment and Plan (Free Text) Assessment: 3) Transient left upper extremity numbness 4) Positive carotid disease without critical lesions 5) A stress test that was unremarkable one year ago Plan: Given these findings, it is unclear whether the patient actually had a TIA that could explain his transient left arm numbness. He just suffered from Carotid Disease that will require treatment with ASA as well as a Atorvastatin. Have discussed the results with the patient in detail. We will D/C Telemetry today. No further cardiac workup is necessary at this time. - Date & Time Date: 03/15/17 Time: 13:02
== END 2017-03-16 19:26 | disposition home or self-care (01) | DRG 93 ==
LOC: ED 19:46 → ERH 22:23 → 2RSO 03-14 00:40 → OBSVTOIN 03-14 16:34 → 3RNO 03-16 00:03
PROVIDERS: ADMIT Internal Medicine; ATTEND Internal Medicine
DX: G95.29 Other cord compression (principal); I65.23 Occlusion and stenosis of bilateral carotid arteries; I10 Essential (primary) hypertension; M48.02 Spinal stenosis, cervical region; H40.9 Unspecified glaucoma; H26.9 Unspecified cataract; K21.9 Gastro-esophageal reflux disease without esophagitis; K29.70 Gastritis, unspecified, without bleeding; M54.12 Radiculopathy, cervical region; M50.321 Other cervical disc degeneration at C4-C5 level; Z79.899 Other long term (current) drug therapy; Z82.3 Family history of stroke; Z83.3 Family history of diabetes mellitus; Z87.891 Personal history of nicotine dependence; Z90.49 Acquired absence of other specified parts of digestive tract; R40.2412 Glasgow coma scale score 13-15, at arrival to emergency department

== ENCOUNTER 2017-03-25 11:34 | Emergency (ER) | payer MEDICARE ==
[2017-03-25 11:35] VITALS: BMI 26.9
--- NOTE | 2017-03-25 12:11 | ED PDOC ---
Arrival/HPI - General Chief Complaint: High Blood Pressure Time Seen by Provider: 03/25/17 12:02 Historian: Patient, Family - History of Present Illness Narrative History of Present Illness (Text): 03/25/17 11:54 Greg Baum is a 76 year old male, whose past medical history includes hypertension, high cholesterol, Arthritis, Glaucoma, and Cataracts, who presents to the emergency department complaining of hypertension since last night. Patient states that he felt warm around his mouth causing him to check high blood pressure which was 184/104 last night. About 1 hour ago, Patient felt the same symptom this morning and his blood pressure was 175/88, prompting patient to come to the emergency department. Patient's family stated that the patient felt tingling in his legs when he walks. Patient denies any chest pain, shortness of breath, vision changes, or any other complaint at this time. PMD: Dr. Covington Time/Duration: 24 hours Symptom Onset: Gradual Symptom Course: Unchanged Severity Level: Mild Activities at Onset: Rest Context: Home Past Medical History - Provider Review Nursing Documentation Reviewed: Yes - Infectious Disease Hx of Infectious Diseases: None - Tetanus Immunization Tetanus Immunization: Unknown - Cardiac Hx Cardiac Disorders: Yes Hx Hypertension: Yes - Pulmonary Hx Respiratory Disorders: No - Neurological Hx Neurological Disorder: Yes Hx Dizziness: No Hx Migraine: No Hx Syncope: Yes (per HPI) Hx Vertigo: No - HEENT Hx HEENT Disorder: Yes Hx Cataracts: Yes Hx Glaucoma: Yes - Renal Hx Renal Disorder: No - Endocrine/Metabolic Hx Endocrine Disorders: No - Hematological/Oncological Hx Blood Disorders: No - Integumentary Hx Dermatological Disorder: No - Musculoskeletal/Rheumatological Hx Musculoskeletal Disorders: Yes Hx Falls: Yes (Fall in Oct 2015) - Gastrointestinal Hx Gastrointestinal Disorders: Yes Hx Gastroesophageal Reflux: Yes - Genitourinary/Gynecological Hx Genitourinary Disorders: Yes Hx Prostate Problems: Yes - Psychiatric Hx Psychophysiologic Disorder: No Hx Substance Use: No - Past Surgical History Past Surgical History: No Previous - Surgical History Hx Cataract Extraction: Yes Hx Cholecystectomy: Yes - Anesthesia Hx Anesthesia: Yes Hx Anesthesia Reactions: No Hx Malignant Hyperthermia: No - Suicidal Assessment Feels Threatened In Home Enviroment: No Family/Social History - Physician Review Nursing Documentation Reviewed: Yes Family/Social History: No Known Family HX Smoking Status: Former Smoker Hx Alcohol Use: Yes (Occasional social use) Frequency of alcohol use: Socially Hx Substance Use: No Hx Substance Use Treatment: No Allergies/Home Meds Allergies/Adverse Reactions: Allergies No Known Allergies Allergy (Verified 03/25/17 11:44) Home Medications: Home Meds Medication Instructions Recorded Confirmed Combigan 0.2%-0.5% 5 ml 1 drop OD DAILY 10/19/13 03/13/17 Dorzolamide 2% 1 drop OD BID 10/19/13 03/13/17 Simvastatin 20 mg PO DAILY 10/19/13 03/13/17 Tadalafil [Cialis] 5 mg PO DAILY PRN 10/24/15 03/13/17 Famotidine [Pepcid] 1 tab PO BID 03/13/17 03/13/17 Review of Systems - Physician Review All systems were reviewed & negative as marked: Yes - Review of Systems Constitutional: Other (hypertension). absent: Fevers, Night Sweats Eyes: absent: Vision Changes ENT: absent: Hearing Changes Respiratory: absent: SOB Cardiovascular: absent: Chest Pain Gastrointestinal: absent: Abdominal Pain Genitourinary Male: absent: Dysuria Musculoskeletal: absent: Arthralgias Skin: absent: Rash Neurological: absent: Headache Endocrine: absent: Diaphoresis Hemo/Lymphatic: absent: Adenopathy Psychiatric: absent: Anxiety Physical Exam - Physical Exam Narrative Physical Exam (Text): Constitutional: No acute distress. Head: Normocephalic. Atraumatic. Eyes: PERRL. ENT: Moist mucous membranes. Neck: Supple. Cardiovascular: Regular rate. Chest: No tenderness. Respiratory: Clear to auscultation bilaterally. GI: Soft. Nontender. Nondistended. Back: No CVA tenderness. Musculoskeletal: No tenderness or swelling of extremities. Skin: No rash. Neurologic: Alert, no focal deficit. CN II to XII intact. Motor 5/5 x 4. Sensation to light touch intact b/l. Gait steady. Vital Signs Reviewed: Yes Vital Signs Temp Pulse Resp BP Pulse Ox 03/25/17 14:51 80 16 136/84 99 03/25/17 11:45 98.7 F 69 16 152/88 H 96 Temperature: Afebrile Blood Pressure: Hypertensive Pulse: Regular Respiratory Rate: Normal Appearance: Positive for: Well-Appearing, Non-Toxic, Comfortable Pain Distress: None Mental Status: Positive for: Alert and Oriented X 3 Medical Decision Making ED Course and Treatment: 03/25/17 11:54 Impression: 76 year old male complaining of hypertension since last night. Plan: -- EKG -- Chest x-ray -- Labs -- Reassess and disposition Prior Visits: Notes and results from previous visits were reviewed. Patient last seen in the ED on 03/13/17 for left arm tingling and numbness for three days. Patient was admitted to hospitalist care for further evaluation. Progress Notes: EKG: Ordered, reviewed, and independently interpreted the EKG. Rate : 70 BPM Rhythm : NSR Interpretation : No ST-wave changes. Normal voltages. CXR no acute disease. Creatinine normal. Patient in no distress. Will discharge home, instructed f/u PMD, return to ER for headache, vision change, neuro deficit, chest pain, dyspnea, vomiting, abdominal pain, or any other problem. - Lab Interpretations Lab Results: 03/25/17 12:57 03/25/17 12:57 Lab Results 03/25/17 12:57: Sodium 142, Potassium 4.5, Chloride 103, Carbon Dioxide 28, Anion Gap 16, BUN 12, Creatinine 0.9, Est GFR ( Amer) > 60, Est GFR (Non- Af Amer) > 60, Random Glucose 116 H, Calcium 9.5, Total Bilirubin 0.7, AST 28, ALT 24, Alkaline Phosphatase 70, Total Protein 8.0, Albumin 4.1, Globulin 3.8, Albumin/Globulin Ratio 1.1 03/25/17 12:57: WBC 9.9, RBC 4.02, Hgb 13.1 L, Hct 37.7 L, MCV 93.8, MCH 32.6, MCHC 34.7, RDW 14.3, Plt Count 221, MPV 9.7, Gran % 52.6, Lymph % (Auto) 29.1, [place] % (Auto) 7.8 H, Eos % (Auto) 10.1 H, Baso % (Auto) 0.4, Gran # 5.21, Lymph # 2.9, [place] # 0.8 H, Eos # 1.0 H, Baso # 0.04 03/25/17 12:11: Urine Color Yellow, Urine Appearance Clear, Urine pH 6.5, Ur Specific [place] 1.010, Urine Protein Negative, Urine Glucose (UA) Negative, Urine Ketones Negative, Urine Blood Small H, Urine Nitrate Negative, Urine Bilirubin Negative, Urine Urobilinogen 0.2, Ur Leukocyte Esterase Negative, Urine RBC 1 - 3, Urine WBC 0 - 2, Ur Epithelial Cells 0 - 2 I have reviewed the lab results: Yes - RAD Interpretation Radiology Orders: 03/25/17 12:04 CHEST TWO VIEWS (PA/LAT) [RAD] Stat - Scribe Statement The provider has reviewed the documentation as recorded by the Scribe Mary Daugherty Provider Scribe Attestation: All medical record entries made by the Scribe were at my direction and personally dictated by me. I have reviewed the chart and agree that the record accurately reflects my personal performance of the history, physical exam, medical decision making, and the department course for this patient. I have also personally directed, reviewed, and agree with the discharge instructions and disposition. Disposition/Present on Arrival - Present on Arrival Any Indicators Present on Arrival: No History of DVT/PE: No History of Uncontrolled Diabetes: No Urinary Catheter: No History of Decub. Ulcer: No History Surgical Site Infection Following: None - Disposition Have Diagnosis and Disposition been Completed?: Yes Diagnosis: Hypertension Disposition: HOME/ ROUTINE Disposition Time: 14:30 Patient Plan: Discharge Condition: STABLE Discharge Instructions (ExitCare): Chronic Hypertension (ED) Referrals: Corie Covington MD [Primary Care Provider] - Follow up with primary
--- NOTE | 2017-03-25 12:23 | CP.PCM.HP ---
Past Patient History - Infectious Disease Hx of Infectious Diseases: None - Tetanus Immunizations Tetanus Immunization: Unknown - Past Medical History & Family History Past Medical History?: Yes - Past Social History Smoking Status: Former Smoker - CARDIAC Hx Cardiac Disorders: Yes Hx Hypertension: Yes - PULMONARY Hx Respiratory Disorders: No - NEUROLOGICAL Hx Neurological Disorder: Yes Hx Dizziness: No Hx Migraine: No Hx Syncope: Yes (per HPI) Hx Vertigo: No - HEENT Hx HEENT Problems: Yes Hx Cataracts: Yes Hx Glaucoma: Yes - RENAL Hx Chronic Kidney Disease: No - ENDOCRINE/METABOLIC Hx Endocrine Disorders: No - HEMATOLOGICAL/ONCOLOGICAL Hx Blood Disorders: No - INTEGUMENTARY Hx Dermatological Problems: No - MUSCULOSKELETAL/RHEUMATOLOGICAL Hx Musculoskeletal Disorders: Yes Hx Falls: Yes (Fall in Oct 2015) - GASTROINTESTINAL Hx Gastrointestinal Disorders: Yes Hx Gastroesophageal Reflux: Yes - GENITOURINARY/GYNECOLOGICAL Hx Genitourinary Disorders: Yes Hx Prostate Problems: Yes - PSYCHIATRIC Hx Psychophysiologic Disorder: No Hx Substance Use: No - SURGICAL HISTORY Hx Surgeries: Yes ("stent in neck") Hx Cataract Extraction: Yes Hx Cholecystectomy: Yes - ANESTHESIA Hx Anesthesia: Yes Hx Anesthesia Reactions: No Hx Malignant Hyperthermia: No Meds Allergies/Adverse Reactions: Allergies Allergy/AdvReac Type Severity Reaction Status Date / Time No Known Allergies Allergy Verified 03/25/17 11:44 Results - Vital Signs Recent Vital Signs: Last Vital Signs Temp 98.7 F 03/25/17 11:45 Pulse 69 03/25/17 11:45 Resp 16 03/25/17 11:45 BP 152/88 H 03/25/17 11:45 Pulse Ox 96 03/25/17 11:45
[2017-03-25 12:25] LABS: PH,URINE 6.5 (4.7-8.0); URINE APPEARANCE CLEAR (CLEAR); URINE BILIRUBIN NEGATIVE (NEGATIVE); URINE BLOOD SMALL (NEGATIVE); URINE COLOR YELLOW (YELLOW); URINE EPITHELIAL CELLS 0 - 2 /hpf (0-5); URINE GLUCOSE (UA) NEGATIVE (NEGATIVE); URINE LEUKOCYTE ESTERASE NEGATIVE Leu/uL (NEGATIVE); URINE NITRATE NEGATIVE (NEGATIVE); URINE PROTEIN NEGATIVE mg/dL (<30 mg/dL); URINE UROBILINOGEN 0.2 E.U./dL (<1 E.U./dL); URINE WBC 0 - 2 /hpf (0-6)
--- NOTE | 2017-03-25 12:49 | RAD ---
HISTORY: Hypertension. COMPARISON: Comparison chest 03/13/2017 TECHNIQUE: Chest PA and lateral FINDINGS: LUNGS: Minor left basilar atelectasis. PLEURA: No significant pleural effusion identified. No pneumothorax apparent. CARDIOVASCULAR: Heart size normal OSSEOUS STRUCTURES: Minor multilevel degenerative spondylosis of the thoracic spine VISUALIZED UPPER ABDOMEN: Normal. OTHER FINDINGS: None. IMPRESSION: Minor left basilar atelectasis.
[2017-03-25 12:56] VITALS: RESP 16; TEMP 98.7
[2017-03-25 13:06] LABS: BASO # 0.04 K/mm3 (0.0-2.0); BASO % 0.4 % (0.0-3.0); EOS % 10.1 % (1.5-5.0); GRAN # 5.21 (1.4-6.5); GRAN % 52.6 % (50.0-68.0); HEMOGLOBIN 13.1 gm/dL (14.0-18.0); LYMPH # 2.9 (1.2-3.4); LYMPH % 29.1 % (22.0-35.0); MEAN CELL VOLUME 93.8 fL (80.0-105.0); MEAN CORPUSCULAR HEMOGLOBIN 32.6 pg (25.0-35.0); MEAN CORPUSCULAR HGB CONC 34.7 g/dl (31.0-37.0); MEAN PLATELET VOLUME 9.7 fl (7.0-11.0); MONO # 0.8 (0.1-0.6); MONO % 7.8 % (1.0-6.0); PLATELET COUNT 221 10^3/uL (120.0-450.0); RBC 4.02 10^6/uL (3.5-6.1); RED CELL DISTRIBUTION WIDTH 14.3 % (11.5-14.5); WHITE BLOOD COUNT 9.9 10^3/ul (4.5-11.0)
[2017-03-25 13:18] LABS: ALB/GLOB RATIO 1.1 (1.1-1.8); ALBUMIN 4.1 g/dL (3.0-4.8); ALT/SGPT 24 U/L (7-56); AST/SGOT 28 U/L (15-59); BLOOD UREA NITROGEN 12 mg/dL (7-21); CALCIUM 9.5 mg/dL (8.4-10.5); GFR AFRICAN-AMERICAN > 60; GFR NON-AFRICAN AMERICAN > 60
[2017-03-25 14:52] VITALS: BP 136/84; PULSE 80; O2SAT 99
--- NOTE | 2017-03-25 19:07 | CARD ---
APPROVED REPORT EKG Measurement Heart [id number] <Conclusion> Normal sinus rhythm Normal ECG
== END 2017-03-25 14:52 | disposition home or self-care (01) ==
LOC: ED 11:34
DX: I10 Essential (primary) hypertension (principal); E78.00 Pure hypercholesterolemia, unspecified; K21.9 Gastro-esophageal reflux disease without esophagitis; Z87.891 Personal history of nicotine dependence

== ENCOUNTER 2017-05-16 01:42 | Emergency (ER) | payer MEDICARE ==
[2017-05-16 02:06] VITALS: BMI 26.4
--- NOTE | 2017-05-16 02:18 | ED PDOC ---
Arrival/HPI - General Chief Complaint: Upper Extremity Problem/Injury Time Seen by Provider: 05/16/17 02:01 Historian: Patient - History of Present Illness Narrative History of Present Illness (Text): 05/16/17 02:13 Greg Baum is a 76 year old male, whose past medical history includes hypertension, arthritis, glaucoma, cataracts, and TIA, presents to the emergency department complaining of right shoulder pain and left arm numbness. States that left arm numbness has currently resolved and was similar to previous episode of TIA. Patient also notes that he had a mild headache, which has also resolved. Denies any chest pain or shortness of breath. Denies any focal deficits. Symptom Onset: Gradual Symptom Course: Improving Activities at Onset: Light Context: Home Past Medical History - Provider Review Nursing Documentation Reviewed: Yes - Infectious Disease Hx of Infectious Diseases: None - Tetanus Immunization Tetanus Immunization: Unknown - Cardiac Hx Cardiac Disorders: Yes Hx Hypertension: Yes - Pulmonary Hx Respiratory Disorders: No - Neurological Hx Neurological Disorder: Yes Hx Dizziness: No Hx Migraine: No Hx Syncope: Yes (per HPI) Hx Vertigo: No - HEENT Hx HEENT Disorder: Yes Hx Cataracts: Yes Hx Glaucoma: Yes - Renal Hx Renal Disorder: No - Endocrine/Metabolic Hx Endocrine Disorders: No - Hematological/Oncological Hx Blood Disorders: No - Integumentary Hx Dermatological Disorder: No - Musculoskeletal/Rheumatological Hx Musculoskeletal Disorders: Yes Hx Falls: Yes (Fall in Oct 2015) - Gastrointestinal Hx Gastrointestinal Disorders: Yes Hx Gastroesophageal Reflux: Yes - Genitourinary/Gynecological Hx Genitourinary Disorders: Yes Hx Prostate Problems: Yes - Psychiatric Hx Psychophysiologic Disorder: No Hx Substance Use: No - Past Surgical History Past Surgical History: No Previous - Surgical History Hx Cataract Extraction: Yes Hx Cholecystectomy: Yes - Anesthesia Hx Anesthesia: Yes Hx Anesthesia Reactions: No Hx Malignant Hyperthermia: No - Suicidal Assessment Feels Threatened In Home Enviroment: No Family/Social History - Physician Review Nursing Documentation Reviewed: Yes Family/Social History: No Known Family HX Smoking Status: Former Smoker Hx Alcohol Use: Yes (Occasional social use) Hx Substance Use: No Hx Substance Use Treatment: No Allergies/Home Meds Allergies/Adverse Reactions: Allergies No Known Allergies Allergy (Verified 03/25/17 11:44) Home Medications: Home Meds Medication Instructions Recorded Confirmed Combigan 0.2%-0.5% 5 ml 1 drop OD DAILY 10/19/13 05/16/17 Dorzolamide 2% 1 drop OD BID 10/19/13 05/16/17 Simvastatin 20 mg PO DAILY 10/19/13 05/16/17 Tadalafil [Cialis] 5 mg PO DAILY PRN 10/24/15 05/16/17 Famotidine [Pepcid] 1 tab PO BID 03/13/17 05/16/17 Review of Systems - Physician Review All systems were reviewed & negative as marked: Yes - Review of Systems Constitutional: Normal. absent: Fatigue, Fevers Respiratory: Normal. absent: SOB, Cough, Sputum Cardiovascular: Normal. absent: Chest Pain, Palpitations Musculoskeletal: Other (right arm pain and left arm numbness ) Neurological: Headache. absent: Dizziness, Focal Weakness Physical Exam Vital Signs Reviewed: Yes Vital Signs Temp Pulse Resp BP Pulse Ox 05/16/17 03:15 64 18 122/77 98 05/16/17 01:51 0 F L 05/16/17 01:47 98.4 F 76 19 142/84 99 Temperature: Afebrile Blood Pressure: Normal Pulse: Regular Respiratory Rate: Normal Appearance: Positive for: Well-Appearing, Non-Toxic, Comfortable Pain Distress: None Mental Status: Positive for: Alert and Oriented X 3 - Systems Exam Head: Present: Atraumatic, Normocephalic Pupils: Present: PERRL Extroacular Muscles: Present: EOMI Conjunctiva: Present: Normal Mouth: Present: Moist Mucous Membranes Neck: Present: Normal Range of Motion. No: MIDLINE TENDERNESS, Paraspinal Tenderness Respiratory/Chest: Present: Clear to Auscultation, Good Air Exchange. No: Respiratory Distress, Accessory Muscle Use Cardiovascular: Present: Regular Rate and Rhythm, Normal S1, S2. No: Murmurs Abdomen: Present: Normal Bowel Sounds. No: Tenderness, Distention, Peritoneal Signs Upper Extremity: Present: Normal Inspection. No: Cyanosis, Edema Lower Extremity: Present: Normal Inspection. No: Edema Neurological: Present: GCS=15, CN II-XII Intact, Speech Normal, Motor Func Grossly Intact, Normal Sensory Function Skin: Present: Warm, Dry, Normal Color. No: Rashes Psychiatric: Present: Alert, Oriented x 3, Normal Insight, Normal Concentration Medical Decision Making ED Course and Treatment: 05/16/17 02:20 Impression: A 76 year old male who presents to the emergency department complaining of right arm pain and numbness to left arm, which has resolved. Plan: -- EKG -- CT Head -- Labs, Troponin -- CXR -- Reassess and disposition Progress Notes: 05/16/17 02:22 EKG reviewed: NSR @ 61 bpm. Normal [place]. Normal interval. 05/16/17 03:19 CT Head results reviewed FINDINGS: Brain: No acute intracranial hemorrhage. Age-appropriate periventricular white matter disease. No edema. Moderate vascular calcifications, unchanged from prior. Ventricles: Age-appropriate ventriculomegaly. Bones: No acute displaced fracture. Sinuses: Unremarkable as visualized. No acute sinusitis. Mastoid air cells: Unremarkable as visualized. No mastoid effusion. IMPRESSION: Stable CT examination of the brain, without acute intracranial hemorrhage, or suspicious mass effect. 05/16/17 04:36 On reevaluation patient states that symptoms have completely resolved and is comfortable to be discharged home. Advised to present to the emergency department for new/worsening symptoms and follow up with PMD within few days. Re-evaluation Time: 04:35 Reassessment Condition: Re-examined, Improved - Lab Interpretations Lab Results: 05/16/17 02:30 05/16/17 02:30 Lab Results 05/16/17 02:30: Blood Type O POSITIVE, Antibody Screen Negative, BBK History Checked Patient has bt 05/16/17 02:30: Sodium 144, Potassium 4.0, Chloride 104, Carbon Dioxide 28, Anion Gap 16, BUN 13, Creatinine 0.8, Est GFR ( Amer) > 60, Est GFR (Non- Af Amer) > 60, Random Glucose 101, Calcium 9.4, Total Bilirubin 0.4, AST 31, ALT 24, Alkaline Phosphatase 92, Troponin I < 0.01, Total Protein 7.7, Albumin 4.2, Globulin 3.5, Albumin/Globulin Ratio 1.2, Triglycerides 89, Cholesterol 111 L, LDL Cholesterol Direct 64, HDL Cholesterol 31 05/16/17 02:30: PT 11.4, INR 1.06, APTT 29.3 05/16/17 02:30: WBC 9.8, RBC 3.95, Hgb 12.8 L, Hct 36.7 L, MCV 92.9, MCH 32.4, MCHC 34.9, RDW 13.9, Plt Count 220, MPV 9.7, Gran % 38.3 L, Lymph % (Auto) 38.0 H, [place] % (Auto) 9.4 H, Eos % (Auto) 13.9 H, Baso % (Auto) 0.4, Gran # 3.76, Lymph # 3.7 H, [place] # 0.9 H, Eos # 1.4 H, Baso # 0.04 05/16/17 02:20: POC Glucose (mg/dL) 117 H I have reviewed the lab results: Yes - RAD Interpretation Radiology Orders: 05/16/17 02:14 CHEST PORTABLE [RAD] Stat 05/16/17 02:15 HEAD W/O CONTRAST [CT] Stat Instructional Technology Specialist: Radiologist - Kita[place] Statement The provider has reviewed the documentation as recorded by the Mary Yap Provider Attestation: All medical record entries made by the Kitaibtaya were at my direction and personally dictated by me. I have reviewed the chart and agree that the record accurately reflects my personal performance of the history, physical exam, medical decision making, and the department course for this patient. I have also personally directed, reviewed, and agree with the discharge instructions and disposition. Disposition/Present on Arrival - Present on Arrival Any Indicators Present on Arrival: No History of DVT/PE: No History of Uncontrolled Diabetes: No Urinary Catheter: No History of Decub. Ulcer: No History Surgical Site Infection Following: None - Disposition Have Diagnosis and Disposition been Completed?: Yes Diagnosis: Carotid stenosis, Paresthesia of left arm Disposition: HOME/ ROUTINE Disposition Time: 04:36 Patient Problems: Current Active Problems Problem Status Onset Carotid stenosis Acute Paresthesia of left arm Acute Condition: GOOD Discharge Instructions (ExitCare): Paresthesia (ED) Referrals: Corie Covington MD [Primary Care Provider] - Follow up with primary Forms: [email or web address] ([place])
[2017-05-16 02:45] LABS: BASO # 0.04 K/mm3 (0.0-2.0); BASO % 0.4 % (0.0-3.0); EOS # 1.4 (0.0-0.7); EOS % 13.9 % (1.5-5.0); GRAN # 3.76 (1.4-6.5); GRAN % 38.3 % (50.0-68.0); HEMATOCRIT 36.7 % (42.0-52.0); LYMPH # 3.7 (1.2-3.4); MEAN CELL VOLUME 92.9 fl (80.0-105.0); MEAN CORPUSCULAR HEMOGLOBIN 32.4 pg (25.0-35.0); MEAN CORPUSCULAR HGB CONC 34.9 g/dl (31.0-37.0); MEAN PLATELET VOLUME 9.7 fl (7.0-11.0); MONO # 0.9 (0.1-0.6); MONO % 9.4 % (1.0-6.0); RED CELL DISTRIBUTION WIDTH 13.9 % (11.5-14.5); WHITE BLOOD COUNT 9.8 10^3/ul (4.5-11.0)
[2017-05-16 02:56] LABS: ALB/GLOB RATIO 1.2 (1.1-1.8); ALKALINE PHOSPHATASE 92 U/L (38-126); ALT/SGPT 24 U/L (7-56); AST/SGOT 31 U/L (17-59); BILIRUBIN,TOTAL 0.4 mg/dL (0.2-1.3); BLOOD UREA NITROGEN 13 mg/dL (7-21); CALCIUM 9.4 mg/dL (8.4-10.5); CARBON DIOXIDE 28 mmol/L (21-33); CHLORIDE 104 mmol/L (98-107); CHOLESTEROL 111 mg/dL (130-200); GFR AFRICAN-AMERICAN > 60; GLUCOSE,RANDOM 101 mg/dL (70-110); INR 1.06 (0.93-1.08); SODIUM 144 mmol/L (132-148); TOTAL PROTEIN 7.7 g/dL (5.8-8.3)
[2017-05-16 03:08] LABS: PARTIAL THROMBOPLASTIN TIME 29.3 Seconds (23.7-30.8)
[2017-05-16 03:14] LABS: TROPONIN I < 0.01 ng/mL
[2017-05-16 03:15] VITALS: O2SAT 98
--- NOTE | 2017-05-16 03:19 | CT ---
EXAM: CT Head Without Intravenous Contrast CLINICAL HISTORY: 76 years old, male; Signs and symptoms; Numbness / parasthesia TECHNIQUE: Axial computed tomography images of the head/brain without intravenous contrast. All CT scans at this facility use one or more dose reduction techniques, viz.: automated exposure control; ma/kV adjustment per patient size (including targeted exams where dose is matched to indication; i.e. head); or iterative reconstruction technique. COMPARISON: CT - HEAD W/O CONTRAST 03/13/2017 8:37:10 PM FINDINGS: Brain: No acute intracranial hemorrhage. Age-appropriate periventricular white matter disease. No edema. Moderate vascular calcifications, unchanged from prior. Ventricles: Age-appropriate ventriculomegaly. Bones: No acute displaced fracture. Sinuses: Unremarkable as visualized. No acute sinusitis. Mastoid air cells: Unremarkable as visualized. No mastoid effusion. IMPRESSION: Stable CT examination of the brain, without acute intracranial hemorrhage, or suspicious mass effect.
[2017-05-16 04:45] VITALS: BP 142/78; PULSE 66; RESP 13; TEMP 97.8
--- NOTE | 2017-05-16 07:48 | RAD ---
HISTORY: numbness COMPARISON: 03/25/2017 FINDINGS: LUNGS: No active pulmonary disease. PLEURA: No significant pleural effusion identified, no pneumothorax apparent. CARDIOVASCULAR: Normal. OSSEOUS STRUCTURES: No significant abnormalities. VISUALIZED UPPER ABDOMEN: Normal. OTHER FINDINGS: None. IMPRESSION: No active disease.
--- NOTE | 2017-05-16 23:29 | CARD ---
APPROVED REPORT EKG Measurement Heart [id number] <Conclusion> Normal sinus rhythm Normal ECG
== END 2017-05-16 04:55 | disposition home or self-care (01) ==
LOC: ED 01:42
DX: I65.29 Occlusion and stenosis of unspecified carotid artery (principal); R20.9 Unspecified disturbances of skin sensation

== ENCOUNTER 2017-05-23 16:06 | Emergency (ER) | payer MEDICARE ==
[2017-05-23 16:09] VITALS: BMI 26.1
[2017-05-23 16:30] VITALS: RESP 18; TEMP 99
--- NOTE | 2017-05-23 16:31 | ED PDOC ---
Arrival/HPI - General Chief Complaint: Upper Extremity Problem/Injury Time Seen by Provider: 05/23/17 16:18 Historian: Patient - History of Present Illness Narrative History of Present Illness (Text): 05/23/17 16:28 A 76 year old male presents to the emergency department complaining of left lower arm and left lower leg numbness (mainly in the left calf) for the past 3 days. Patient has been seen before for similar complaints. Patient denies any trauma, injury, fever, chills, nausea, vomiting, abdominal pain, chest pain, shortness of breath, headache, dizziness, visual changes or any other complaints. PMD: Dr. Covington Neurologist: Dr. Cabrera Time/Duration: Other (3 days) Symptom Course: Unchanged Quality: Other Context: Home Past Medical History - Provider Review Nursing Documentation Reviewed: Yes - Infectious Disease Hx of Infectious Diseases: None - Tetanus Immunization Tetanus Immunization: Unknown - Cardiac Hx Cardiac Disorders: Yes Hx Hypertension: Yes - Pulmonary Hx Respiratory Disorders: No - Neurological Hx Neurological Disorder: Yes Hx Dizziness: No Hx Migraine: No Hx Syncope: Yes (per HPI) Hx Vertigo: No - HEENT Hx HEENT Disorder: Yes Hx Cataracts: Yes Hx Glaucoma: Yes - Renal Hx Renal Disorder: No - Endocrine/Metabolic Hx Endocrine Disorders: No - Hematological/Oncological Hx Blood Disorders: No - Integumentary Hx Dermatological Disorder: No - Musculoskeletal/Rheumatological Hx Musculoskeletal Disorders: Yes Hx Falls: Yes (Fall in Oct 2015) - Gastrointestinal Hx Gastrointestinal Disorders: Yes Hx Gastroesophageal Reflux: Yes - Genitourinary/Gynecological Hx Genitourinary Disorders: Yes Hx Prostate Problems: Yes - Psychiatric Hx Psychophysiologic Disorder: No Hx Substance Use: No - Past Surgical History Past Surgical History: No Previous - Surgical History Hx Cataract Extraction: Yes Hx Cholecystectomy: Yes - Anesthesia Hx Anesthesia: Yes Hx Anesthesia Reactions: No Hx Malignant Hyperthermia: No - Suicidal Assessment Feels Threatened In Home Enviroment: No Family/Social History - Physician Review Nursing Documentation Reviewed: Yes Family/Social History: No Known Family HX Smoking Status: Former Smoker Hx Alcohol Use: Yes (Occasional social use) Hx Substance Use: No Hx Substance Use Treatment: No Allergies/Home Meds Allergies/Adverse Reactions: Allergies No Known Allergies Allergy (Verified 05/23/17 16:09) Home Medications: Home Meds Medication Instructions Recorded Confirmed Combigan 0.2%-0.5% 5 ml 1 drop OD DAILY 10/19/13 05/23/17 Dorzolamide 2% 1 drop OD BID 10/19/13 05/23/17 Simvastatin 20 mg PO DAILY 10/19/13 05/23/17 Tadalafil [Cialis] 5 mg PO DAILY PRN 10/24/15 05/23/17 Bimatoprost [Lumigan] 1 drop BOTHEYES DAILY 05/23/17 05/23/17 Cholecalciferol (Vitamin D3) 1 tab PO DAILY 05/23/17 05/23/17 [Vitamin D3] Docusate Sodium [Dok] 1 tab PO DAILY 05/23/17 05/23/17 Esomeprazole Magnesium [Nexium 1 tab PO DAILY 05/23/17 05/23/17 24Hr] Multivit-Min/FA/Lycopen/Lutein 1 tab PO DAILY 05/23/17 05/23/17 [Centrum Silver Men Tablet] Tamsulosin [Flomax] 1 tab PO DAILY 05/23/17 05/23/17 amLODIPine [Norvasc] 1 tab PO DAILY 05/23/17 05/23/17 Review of Systems - Physician Review All systems were reviewed & negative as marked: Yes - Review of Systems Constitutional: absent: Fevers, Night Sweats Eyes: absent: Vision Changes Respiratory: absent: SOB Cardiovascular: absent: Chest Pain Gastrointestinal: absent: Abdominal Pain, Nausea, Vomiting Neurological: Other (Left upper and lower extremity numbness). absent: Headache , Dizziness Physical Exam Vital Signs Reviewed: Yes Vital Signs Temp Pulse Resp BP Pulse Ox 05/23/17 17:55 75 18 138/79 98 05/23/17 16:25 99.0 F 82 18 141/88 97 05/23/17 16:13 98.0 F 77 16 123/81 97 Temperature: Afebrile Blood Pressure: Normal Pulse: Regular Respiratory Rate: Normal Appearance: Positive for: Well-Appearing, Non-Toxic, Comfortable Pain Distress: None Mental Status: Positive for: Alert and Oriented X 3 - Systems Exam Head: Present: Atraumatic, Normocephalic Pupils: Present: PERRL Conjunctiva: Present: Normal Mouth: Present: Moist Mucous Membranes Pharnyx: Present: Normal. No: ERYTHEMA, EXUDATE Neck: Present: Normal Range of Motion Respiratory/Chest: Present: Clear to Auscultation, Good Air Exchange. No: Respiratory Distress, Accessory Muscle Use Cardiovascular: Present: Regular Rate and Rhythm, Normal S1, S2. No: Murmurs Abdomen: Present: Normal Bowel Sounds. No: Tenderness, Distention, Peritoneal Signs Back: Present: Normal Inspection Upper Extremity: Present: Normal Inspection. No: Cyanosis, Edema Lower Extremity: Present: Normal Inspection. No: Edema Neurological: Present: GCS=15, CN II-XII Intact, Speech Normal, Motor Func Grossly Intact, Normal Sensory Function, Normal Cerebellar Funct, Gait Normal, Memory Normal Skin: Present: Warm, Dry, Normal Color. No: Rashes Psychiatric: Present: Alert, Oriented x 3, Normal Insight, Normal Concentration Medical Decision Making ED Course and Treatment: 05/23/17 16:28 Impression: A 76 year old male with left upper and lower extremity numbness x 3 days; not a tpa candidate, with normal exam. NIHSS is zero. Plan: -- Head CT -- Lumbar spine CT -- Chest xray -- EKG -- Labs -- Reassess and disposition Progress Notes: 05/23/17 16:33 Patient just had MRI of the brain and c-spine and CTA, all just done a few weeks ago with no acute findings but some spinal stenosis. Patient evaluated here in the ED by neurologist, Dr. Cabrera, who recommends CT grain of the head and lumbar spine. He states if no acute findings are noted recommends placing patient on Neurontin 100 mg and discharging him for outpatient followup. EKG: NSR @ 76; normal intervals, normal axis, no ST/T changes. Report Date : 05/23/2017 17:24:49 PROCEDURE: CT HEAD WITHOUT CONTRAST. Dictator : Dewayne Moore MD IMPRESSION: Normal CT of the Head. No acute intracranial abnormalities. No significant findings to account for the clinical presentation. No significant interval change compared to the prior examination(s). Report Date : 05/23/2017 17:35:04 PROCEDURE: CT Lumbar Spine without contrast Dictator : Dewayne Moore MD IMPRESSION: 1. No acute findings related to/accounting for the clinical presentation. 2. Multiple bulging annuli, evidence of mild hypertrophy at multiple levels. No evidence of focal disc herniation or spinal stenosis. 3. Unremarkable vertebral bodies and adjacent paraspinous structures. 05/23/17 17:58 Patient with no acute findings on imaging today and full workup just done a few weeks ago. The parasthesias he is complaining of are in parts of the left arm and left leg, rather than the entire extremity, which is more consistent with peripheral. As he was examined by Dr. Cabrera and case discussed with him, will discharge on neurontin as recommended by him. - Lab Interpretations Lab Results: 05/23/17 16:59 05/23/17 16:59 Lab Results 05/23/17 16:59: Sodium 142, Potassium 4.2, Chloride 104, Carbon Dioxide 29, Anion Gap 13, BUN 10, Creatinine 0.9, Est GFR ( Amer) > 60, Est GFR (Non- Af Amer) > 60, Random Glucose 144 H, Calcium 9.5, Magnesium 2.1, Total Bilirubin 0.5, AST 27, ALT 28, Alkaline Phosphatase 81, Lactate Dehydrogenase 353, Total Creatine Kinase 69, Troponin I < 0.01, Total Protein 7.8, Albumin 4.3 , Globulin 3.5, Albumin/Globulin Ratio 1.2, Triglycerides 72, Cholesterol 127 L , LDL Cholesterol Direct 75, HDL Cholesterol 35, Lipase 135 05/23/17 16:59: PT 11.3, INR 1.05, APTT 28.2 05/23/17 16:59: WBC 10.7, RBC 3.96, Hgb 12.8 L, Hct 36.8 L, MCV 92.9, MCH 32.3, MCHC 34.8, RDW 14.0, Plt Count 231, MPV 9.5, Gran % 60.2, Lymph % (Auto) 25.3, [place] % (Auto) 6.8 H, Eos % (Auto) 7.3 H, Baso % (Auto) 0.4, Gran # 6.43, Lymph # 2.7, [place] # 0.7 H, Eos # 0.8 H, Baso # 0.04 I have reviewed the lab results: Yes - RAD Interpretation Radiology Orders: 05/23/17 16:26 CHEST PORTABLE [RAD] Stat 05/23/17 16:27 HEAD W/O CONTRAST [CT] Stat 05/23/17 16:33 LUMBAR SPINE W/O CONTRAST [CT] Stat NIHSS Scale ([place]) Time Performed: 16:23 - How Severe is the [place] Baseline Level of Consciousness: 0=Alert LOC to Questions: 0=Both comments correct LOC to commands: 0=Obeys both correctly Best Gaze: 0=Normal Visual: 0=No visual loss Facial: 0=Normal Motor Arm - Left: 0=No drift Motor Arm - Right: 0=No drift Motor Leg - Left: 0=No drift Motor Leg - Right: 0=No drift Limb Ataxia: 0=Absent Sensory: 0=Normal Best Language: 0=No aphasia Dysarthia: 0=Normal articulation Extinction & Inattention (Neglect): 0=Normal, no object Score: 0 Risk Level: No Stroke Risk - Scribe Statement The provider has reviewed the documentation as recorded by the Scribe Lani Malave Provider Scribe Attestation: All medical record entries made by the Scribe were at my direction and personally dictated by me. I have reviewed the chart and agree that the record accurately reflects my personal performance of the history, physical exam, medical decision making, and the department course for this patient. I have also personally directed, reviewed, and agree with the discharge instructions and disposition. Disposition/Present on Arrival - Present on Arrival Any Indicators Present on Arrival: No History of DVT/PE: No History of Uncontrolled Diabetes: No Urinary Catheter: No History of Decub. Ulcer: No History Surgical Site Infection Following: None - Disposition Have Diagnosis and Disposition been Completed?: Yes Diagnosis: Paresthesia Disposition: HOME/ ROUTINE Disposition Time: 18:00 Patient Plan: Discharge Condition: GOOD Additional Instructions: Take the neurontin as prescribed. Follow up with Dr. Cabrera. Return to the emergency department if any new concerning symptoms. Prescriptions: Gabapentin [Neurontin] 1 cap PO HS #30 capsule Referrals: Corie Covington MD [Primary Care Provider] - Follow up with primary Grant Cabrera MD [Staff Provider] - Follow up with primary Forms: [employer] ([place])
[2017-05-23 17:14] LABS: BASO # 0.04 K/mm3 (0.0-2.0); BASO % 0.4 % (0.0-3.0); EOS # 0.8 (0.0-0.7); EOS % 7.3 % (1.5-5.0); GRAN # 6.43 (1.4-6.5); GRAN % 60.2 % (50.0-68.0); HEMATOCRIT 36.8 % (42.0-52.0); LYMPH # 2.7 (1.2-3.4); LYMPH % 25.3 % (22.0-35.0); MEAN CELL VOLUME 92.9 fl (80.0-105.0); MEAN CORPUSCULAR HEMOGLOBIN 32.3 pg (25.0-35.0); MEAN CORPUSCULAR HGB CONC 34.8 g/dl (31.0-37.0); MEAN PLATELET VOLUME 9.5 fl (7.0-11.0); MONO # 0.7 (0.1-0.6); MONO % 6.8 % (1.0-6.0); WHITE BLOOD COUNT 10.7 10^3/ul (4.5-11.0)
[2017-05-23 17:26] LABS: INR 1.05 (0.93-1.08); PARTIAL THROMBOPLASTIN TIME 28.2 Seconds (23.7-30.8)
--- NOTE | 2017-05-23 17:26 | CT ---
PROCEDURE: CT HEAD WITHOUT CONTRAST. HISTORY: L arm and leg numbness COMPARISON: 05/16/2017. Summary of findings on the comparison examination: Stable CT examination of brain, without acute intracranial hemorrhage, or suspicious mass effect. TECHNIQUE: Axial computed tomography images were obtained through the head/brain without intravenous contrast. Radiation dose: Total exam DLP = 725.84 mGy-cm. This CT exam was performed using one or more of the following dose reduction techniques: Automated exposure control, adjustment of the mA and/or kV according to patient size, and/or use of iterative reconstruction technique. FINDINGS: HEMORRHAGE: No intracranial hemorrhage. BRAIN: No mass effect or edema. Age related senescent change VENTRICLES: Unremarkable. No hydrocephalus. CALVARIUM: Unremarkable. PARANASAL SINUSES: Unremarkable as visualized. No significant inflammatory changes. MASTOID AIR CELLS: Unremarkable as visualized. No inflammatory changes. OTHER FINDINGS: None. IMPRESSION: Normal CT of the Head. No acute intracranial abnormalities. No significant findings to account for the clinical presentation. No significant interval change compared to the prior examination(s).
[2017-05-23 17:33] LABS: ALB/GLOB RATIO 1.2 (1.1-1.8); ALKALINE PHOSPHATASE 81 U/L (38-126); ALT/SGPT 28 U/L (7-56); AST/SGOT 27 U/L (17-59); BILIRUBIN,TOTAL 0.5 mg/dL (0.2-1.3); BLOOD UREA NITROGEN 10 mg/dL (7-21); CALCIUM 9.5 mg/dL (8.4-10.5); CARBON DIOXIDE 29 mmol/L (21-33); CHLORIDE 104 mmol/L (98-107); CHOLESTEROL 127 mg/dL (130-200); GFR AFRICAN-AMERICAN > 60; GLUCOSE,RANDOM 144 mg/dL (70-110); LIPASE 135 U/L (23-300); MAGNESIUM 2.1 mg/dL (1.7-2.2); POTASSIUM 4.2 mmol/L (3.6-5.0); TOTAL PROTEIN 7.8 g/dL (5.8-8.3)
--- NOTE | 2017-05-23 17:36 | CT ---
PROCEDURE: CT Lumbar Spine without contrast HISTORY: left leg numbness COMPARISON: None. TECHNIQUE: Axial computed tomography images were obtained of the lumbar spine without the use of intravenous contrast. Coronal and sagittal reformatted images were created and reviewed. Radiation dose: Total exam DLP = 879.04 mGy-cm. This CT exam was performed using one or more of the following dose reduction techniques: Automated exposure control, adjustment of the mA and/or kV according to patient size, and/or use of iterative reconstruction technique. FINDINGS: VERTEBRAE: Unremarkable. No fracture. Normal alignment. DISCS/SPINAL CANAL/NEURAL FORAMINA: L1-2: Unremarkable. L2-3: Unremarkable. Facet hypertrophy, mild L3-4: Mild bulging annulus without focal disc herniation. Moderate facet hypertrophy. L4-5: Mild bulging annulus without focal disc herniation. Moderate facet hypertrophy. L5-S1: Mild bulging annulus fibrosus. No focal disc herniation. Moderate facet hypertrophy. PARASPINAL SOFT TISSUES: Unremarkable. OTHER FINDINGS: Incidental finding(s): Bilateral simple renal cysts. Diverticulosis without an acute inflammatory component or other associated pathologic process. IMPRESSION: 1. No acute findings related to/accounting for the clinical presentation. 2. Multiple bulging annuli, evidence of mild hypertrophy at multiple levels. No evidence of focal disc herniation or spinal stenosis. 3. Unremarkable vertebral bodies and adjacent paraspinous structures.
[2017-05-23 17:42] LABS: SODIUM 142 mmol/L (132-148)
[2017-05-23 17:43] LABS: TROPONIN I < 0.01 ng/mL
[2017-05-23 17:55] VITALS: BP 138/79; PULSE 75; O2SAT 98
--- NOTE | 2017-05-23 17:59 | CP.PCM.CON ---
<Aleksandr Zavala - Last Filed: 05/23/17 17:33> History of Present Illness - History of Present Illness History of Present Illness: Neurology Consult Note for Dr. Cabrera Service CC: Left arm and leg numbness x3 days This is a 76 yo Male with PMH of gastritis, glaucoma, cataracts, arthritis, pre-diabetes, and spinal stenosis confirmed on prior radiographs presenting to [facility] with complaint of intermittent numbness in his LUE and LLE x3 days. He has had similar symptoms in the past, most commonly with the LUE, and was discharged from [facility] on 03/17/17 for similar presentation. At that admission, patient was instructed to follow up with Dr. Cabrera in the office for outpatient EMG. Patient reports following up with Dr. Quan Cabrera last week, and had an EMG done in the office. He was also instructed to start Gabapentin 300mg PO qHS, but states he was never given that medication or script for that medication at discharge. Denies dizziness, lightheadedness, fever, chills, or R -sided numbness. All other ROS negative. PMH: as above PSH: denies SHx: admits intermittent tobacco use, social EtOH, denies illicits/IVDA FHx: Grandmother: diabetes PMD: Dr. Garcia Review of Systems - Review of Systems All systems: reviewed and no additional remarkable complaints except (as per HPI ) Past Patient History - Infectious Disease Hx of Infectious Diseases: None - Tetanus Immunizations Tetanus Immunization: Unknown - Past Medical History & Family History Past Medical History?: Yes - Past Social History Smoking Status: Former Smoker - CARDIAC Hx Cardiac Disorders: Yes Hx Hypertension: Yes - PULMONARY Hx Respiratory Disorders: No - NEUROLOGICAL Hx Neurological Disorder: Yes Hx Dizziness: No Hx Migraine: No Hx Syncope: Yes (per HPI) Hx Vertigo: No - HEENT Hx HEENT Problems: Yes Hx Cataracts: Yes Hx Glaucoma: Yes - RENAL Hx Chronic Kidney Disease: No - ENDOCRINE/METABOLIC Hx Endocrine Disorders: No - HEMATOLOGICAL/ONCOLOGICAL Hx Blood Disorders: No - INTEGUMENTARY Hx Dermatological Problems: No - MUSCULOSKELETAL/RHEUMATOLOGICAL Hx Musculoskeletal Disorders: Yes Hx Falls: Yes (Fall in Oct 2015) - GASTROINTESTINAL Hx Gastrointestinal Disorders: Yes Hx Gastroesophageal Reflux: Yes - GENITOURINARY/GYNECOLOGICAL Hx Genitourinary Disorders: Yes Hx Prostate Problems: Yes - PSYCHIATRIC Hx Psychophysiologic Disorder: No Hx Substance Use: No - SURGICAL HISTORY Hx Cataract Extraction: Yes Hx Cholecystectomy: Yes - ANESTHESIA Hx Anesthesia: Yes Hx Anesthesia Reactions: No Hx Malignant Hyperthermia: No Meds Allergies/Adverse Reactions: Allergies Allergy/AdvReac Type Severity Reaction Status Date / Time No Known Allergies Allergy Verified 05/23/17 16:09 Physical Exam - Constitutional Appears: Well, Non-toxic, No Acute Distress - Head Exam Head Exam: ATRAUMATIC, NORMAL INSPECTION, NORMOCEPHALIC - Eye Exam Eye Exam: EOMI, Normal appearance. absent: Conjunctival injection, Scleral icterus Pupil Exam: absent: Irregular, Unequal - ENT Exam ENT Exam: Mucous Membranes Moist - Neck Exam Neck exam: Positive for: Full Rom - Respiratory Exam Respiratory Exam: NORMAL BREATHING PATTERN. absent: Accessory Muscle Use, Chest Wall Tenderness - Cardiovascular Exam Cardiovascular Exam: absent: Bradycardia, Tachycardia, JVD Additional comments: Rate of 70's on bedside monitor - GI/Abdominal Exam GI & Abdominal Exam: absent: Distended, Tenderness - Extremities Exam Extremities exam: Negative for: calf tenderness, joint swelling, pedal edema Additional comments: patellar tendon reflexes +2 in LLE - Neurological Exam Additional comments: awake and alert, moving all extremities spontaneously, following all commands - Psychiatric Exam Psychiatric exam: Normal Affect, Normal Mood - Skin Skin Exam: Dry, Intact, Normal Color, Warm Results - Vital Signs Recent Vital Signs: Last Vital Signs Temp 99.0 F 05/23/17 16:25 Pulse 82 05/23/17 16:25 Resp 18 05/23/17 16:25 BP 141/88 05/23/17 16:25 Pulse Ox 97 05/23/17 16:25 - Labs Result Diagrams: 05/23/17 16:59 Labs: Laboratory Results - last 24 hr 05/23/17 16:59 WBC 10.7 RBC 3.96 Hgb 12.8 L Hct 36.8 L MCV 92.9 MCH 32.3 MCHC 34.8 RDW 14.0 Plt Count 231 MPV 9.5 Gran % 60.2 Lymph % (Auto) 25.3 [place] % (Auto) 6.8 H Eos % (Auto) 7.3 H Baso % (Auto) 0.4 Gran # 6.43 Lymph # 2.7 [place] # 0.7 H Eos # 0.8 H Baso # 0.04 Assessment & Plan - Assessment and Plan (Free Text) Assessment: This is a 76 yo Male with PMH of gastritis, glaucoma, cataracts, arthritis, pre-diabetes, and spinal stenosis confirmed on prior radiographs presenting to [facility] with complaint of intermittent numbness in his LUE and LLE x3 days. His symptoms are most likely 2/2 spinal stenosis (foraminal stenosis), noted on MRI cervical spine obtained on 03/15/17. Patient just recently follow up in the office as an outpatient and obtained an EMG, will follow up the results. Will start on Gabapentin 100mg PO qHS as he is still gabapentin naive, do not need to start at 300mg PO qHS dose at this time. Patient instructed to follow up in Neuro office as outpatient within [address] thoracic spine ordered, if negative for new stenosis, safe for discharge to home. Plan: 1) CT head and CT thoracic spine to rule out new lesions/new stenosis, respectively 2) Gabapentin 100mg PO qHS for neuropathy 3) F/u in Neuro office as outpatient within 2 weeks, will review EMG results with patient then Patient seen, reviewed, and discussed with attending, Dr. Cabrera. <Grant Cabrera - Last Filed: 05/24/17 11:08> Results - Vital Signs Recent Vital Signs: Last Vital Signs Temp 99.0 F 05/23/17 16:25 Pulse 75 05/23/17 17:55 Resp 18 05/23/17 17:55 BP 138/79 05/23/17 17:55 Pulse Ox 98 05/23/17 17:55 - Labs Result Diagrams: 05/23/17 16:59 05/23/17 16:59 Labs: Laboratory Results - last 24 hr 05/23/17 05/23/17 05/23/17 16:59 16:59 16:59 WBC 10.7 RBC 3.96 Hgb 12.8 L Hct 36.8 L MCV 92.9 MCH 32.3 MCHC 34.8 RDW 14.0 Plt Count 231 MPV 9.5 Gran % 60.2 Lymph % (Auto) 25.3 [place] % (Auto) 6.8 H Eos % (Auto) 7.3 H Baso % (Auto) 0.4 Gran # 6.43 Lymph # 2.7 [place] # 0.7 H Eos # 0.8 H Baso # 0.04 PT 11.3 INR 1.05 APTT 28.2 Sodium 142 Potassium 4.2 Chloride 104 Carbon Dioxide 29 Anion Gap 13 BUN 10 Creatinine 0.9 Est GFR ( Amer) > 60 Est GFR (Non-Af Amer) > 60 Random Glucose 144 H Hemoglobin A1c Calcium 9.5 Magnesium 2.1 Total Bilirubin 0.5 AST 27 ALT 28 Alkaline Phosphatase 81 Lactate Dehydrogenase 353 Total Creatine Kinase 69 Troponin I < 0.01 Total Protein 7.8 Albumin 4.3 Globulin 3.5 Albumin/Globulin Ratio 1.2 Triglycerides 72 Cholesterol 127 L LDL Cholesterol Direct 75 HDL Cholesterol 35 Lipase 135 Blood Type Antibody Screen BBK History Checked 05/23/17 05/23/17 16:59 16:59 WBC RBC Hgb Hct MCV MCH MCHC RDW Plt Count MPV Gran % Lymph % (Auto) [place] % (Auto) Eos % (Auto) Baso % (Auto) Gran # Lymph # [place] # Eos # Baso # PT INR APTT Sodium Potassium Chloride Carbon Dioxide Anion Gap BUN Creatinine Est GFR ( Amer) Est GFR (Non-Af Amer) Random Glucose Hemoglobin A1c 6.1 Calcium Magnesium Total Bilirubin AST ALT Alkaline Phosphatase Lactate Dehydrogenase Total Creatine Kinase Troponin I Total Protein Albumin Globulin Albumin/Globulin Ratio Triglycerides Cholesterol LDL Cholesterol Direct HDL Cholesterol Lipase Blood Type O POSITIVE Antibody Screen Negative BBK History Checked Patient has bt Attending/Attestation - Attestation I have personally seen and examined this patient.: Yes I have fully participated in the care of the patient.: Yes I have reviewed all pertinent clinical information: Yes
--- NOTE | 2017-05-23 19:04 | RAD ---
HISTORY: L arm numbness COMPARISON: 05/16/2017. FINDINGS: LUNGS: No active pulmonary disease. PLEURA: No significant pleural effusion identified, no pneumothorax apparent. CARDIOVASCULAR: No radiographic findings to suggest acute or significant cardiovascular disease. OSSEOUS STRUCTURES: No significant abnormalities. VISUALIZED UPPER ABDOMEN: Normal. OTHER FINDINGS: None. IMPRESSION: No active disease. No significant interval change compared to the prior examination(s).
--- NOTE | 2017-05-24 10:11 | CARD ---
APPROVED REPORT EKG Measurement Heart [id number] <Conclusion> Normal sinus rhythm Normal ECG
== END 2017-05-23 18:30 | disposition home or self-care (01) ==
LOC: ED 16:06
DX: R20.9 Unspecified disturbances of skin sensation (principal); I10 Essential (primary) hypertension; K21.9 Gastro-esophageal reflux disease without esophagitis; Z87.891 Personal history of nicotine dependence

== ENCOUNTER 2017-06-15 17:27 | Emergency (ER) | payer MEDICARE ==
[2017-06-15 17:49] VITALS: BP 137/74; PULSE 65; TEMP 98.1
[2017-06-15 17:52] VITALS: BMI 26.6
--- NOTE | 2017-06-15 18:10 | ED PDOC ---
Arrival/HPI - General Chief Complaint: Shortness Of Breath Time Seen by Provider: 06/15/17 17:27 Historian: Patient - History of Present Illness Narrative History of Present Illness (Text): 06/15/17 18:03 A 77 year old male, whose past medical history includes hypertension, arthritis , glaucoma, cataracts, and TIA, presents to the emergency department complaining of shortness of breath. Patient reports experiencing "dizziness" upon arrival to the ER. shortness of breath has now resolved, but still feels some dizzness. Patient is a porr historian. Denies of any fever, cough, or any other complaints. PMD: Dr. Covington Symptom Onset: Gradual Symptom Course: Unchanged Past Medical History - Provider Review Nursing Documentation Reviewed: Yes - Infectious Disease Hx of Infectious Diseases: None - Tetanus Immunization Tetanus Immunization: Unknown - Cardiac Hx Cardiac Disorders: Yes Hx Hypertension: Yes Other/Comment: as per pt "decreased blood flow to his brain". - Pulmonary Hx Respiratory Disorders: No - Neurological Hx Neurological Disorder: Yes Hx Dizziness: No Hx Migraine: No Hx Syncope: Yes (per HPI) Hx Vertigo: No - HEENT Hx HEENT Disorder: Yes Hx Cataracts: Yes Hx Glaucoma: Yes - Renal Hx Renal Disorder: No - Endocrine/Metabolic Hx Endocrine Disorders: No - Hematological/Oncological Hx Blood Disorders: No - Integumentary Hx Dermatological Disorder: No - Musculoskeletal/Rheumatological Hx Musculoskeletal Disorders: Yes Hx Falls: Yes (Fall in Oct 2015) - Gastrointestinal Hx Gastrointestinal Disorders: Yes Hx Gastroesophageal Reflux: Yes - Genitourinary/Gynecological Hx Genitourinary Disorders: Yes Hx Prostate Problems: Yes - Psychiatric Hx Psychophysiologic Disorder: No Hx Substance Use: No - Past Surgical History Past Surgical History: No Previous - Surgical History Hx Cataract Extraction: Yes Hx Cholecystectomy: Yes - Anesthesia Hx Anesthesia: Yes Hx Anesthesia Reactions: No Hx Malignant Hyperthermia: No - Suicidal Assessment Feels Threatened In Home Enviroment: No Family/Social History - Physician Review Nursing Documentation Reviewed: Yes Family/Social History: No Known Family HX Smoking Status: Former Smoker Hx Alcohol Use: Yes (Occasional social use) Hx Substance Use: No Hx Substance Use Treatment: No Allergies/Home Meds Allergies/Adverse Reactions: Allergies No Known Allergies Allergy (Verified 06/15/17 17:52) Home Medications: Home Meds Medication Instructions Recorded Confirmed Combigan 0.2%-0.5% 5 ml 1 drop OD DAILY 10/19/13 06/15/17 Dorzolamide 2% 1 drop OD BID 10/19/13 06/15/17 Simvastatin 20 mg PO DAILY 10/19/13 06/15/17 Tadalafil [Cialis] 5 mg PO DAILY PRN 10/24/15 06/15/17 Bimatoprost [Lumigan] 1 drop BOTHEYES DAILY 05/23/17 06/15/17 Cholecalciferol (Vitamin D3) 1 tab PO DAILY 05/23/17 06/15/17 [Vitamin D3] Docusate Sodium [Dok] 1 tab PO DAILY 05/23/17 06/15/17 Esomeprazole Magnesium [Nexium 1 tab PO DAILY 05/23/17 06/15/17 24Hr] Multivit-Min/FA/Lycopen/Lutein 1 tab PO DAILY 05/23/17 06/15/17 [Centrum Silver Men Tablet] Tamsulosin [Flomax] 1 tab PO DAILY 05/23/17 06/15/17 amLODIPine [Norvasc] 1 tab PO DAILY 05/23/17 06/15/17 Review of Systems - Physician Review All systems were reviewed & negative as marked: Yes - Review of Systems Constitutional: absent: Fevers Respiratory: SOB. absent: Cough Neurological: Dizziness Physical Exam Vital Signs Reviewed: Yes Vital Signs Temp Pulse Resp BP Pulse Ox 06/15/17 18:00 17 99 06/15/17 17:48 98.1 F 65 18 137/74 100 Temperature: Afebrile Blood Pressure: Normal Pulse: Regular Respiratory Rate: Normal Appearance: Positive for: Well-Appearing Pain Distress: None Mental Status: Positive for: Alert and Oriented X 3 - Systems Exam Head: Present: Atraumatic, Normocephalic Pupils: Present: PERRL Extroacular Muscles: Present: EOMI Conjunctiva: Present: Normal Mouth: Present: Moist Mucous Membranes Neck: Present: Normal Range of Motion Respiratory/Chest: Present: Clear to Auscultation, Good Air Exchange. No: Respiratory Distress, Accessory Muscle Use Cardiovascular: Present: Regular Rate and Rhythm, Normal S1, S2. No: Murmurs Abdomen: Present: Normal Bowel Sounds. No: Tenderness, Distention, Peritoneal Signs Back: Present: Normal Inspection Upper Extremity: Present: Normal Inspection. No: Cyanosis, Edema Lower Extremity: Present: Normal Inspection. No: Edema Neurological: Present: GCS=15, CN II-XII Intact, Speech Normal Skin: Present: Warm, Dry, Normal Color. No: Rashes Psychiatric: Present: Alert, Oriented x 3, Normal Insight, Normal Concentration Medical Decision Making ED Course and Treatment: 06/15/17 18:04 Impression: 77 year old male with shortness of breath and dizziness. Physical exam is benign. Plan: -- EKG -- Chest X-ray -- Labs -- Urinalysis -- Reassess and disposition Prior Visits: Notes and results from previous visits were reviewed. Patient was last seen in the emergency department on 05/23/2017 for left lower arm and left lower leg numbness (mainly in the left calf). Patient was d/c home. Progress Notes: EKG: Ordered, reviewed, and independently interpreted the EKG. Rate : 64 BPM Rhythm : NSR Interpretation : No ST-segment elevations or depressions, no T-wave inversions, normal intervals. Comparison : No previous EKG for comparison. 06/15/2017 18:23 Chest X-ray FINDINGS: Examination limited by habitus. LUNGS: No focal consolidation. Please note that chest x-ray has limited sensitivity for the detection of pulmonary masses. PLEURA: No significant pleural effusion identified. No definite pneumothorax. CARDIOVASCULAR: Heart size appears within normal limits. Atherosclerotic calcifications of the aortic knob. OSSEOUS STRUCTURES: Degenerative changes of the spine. VISUALIZED UPPER ABDOMEN: Unremarkable. OTHER FINDINGS: None. IMPRESSION: No focal consolidation, significant pleural effusion, or definite pneumothorax identified. Dictator: Lisa Solorio MD 06/15/17 19:26 pt reassesed: states symptosm resolved. 06/15/17 22:00 as symptoms started less than 1 hour ago, request pt to remain in hospital for 2nd set. pt refuses. signs ama - Lab Interpretations Lab Results: 06/15/17 17:45 06/15/17 17:45 Lab Results 06/15/17 17:45: Sodium 142, Potassium 4.1, Chloride 103, Carbon Dioxide 27, Anion Gap 16, BUN 13, Creatinine 0.9, Est GFR ( Amer) > 60, Est GFR (Non- Af Amer) > 60, Random Glucose 121 H, Calcium 9.3, Magnesium 2.1, Total Bilirubin 0.3, AST 21, ALT 17, Alkaline Phosphatase 84, Lactate Dehydrogenase 407, Total Creatine Kinase 67, Troponin I < 0.01, NT-Pro-B Natriuret Pep 41.6, Total Protein 7.3, Albumin 4.1, Globulin 3.2, Albumin/Globulin Ratio 1.3 06/15/17 17:45: Urine Color Yellow, Urine Appearance Clear, Urine pH 6.5, Ur Specific [place] 1.010, Urine Protein Negative, Urine Glucose (UA) Negative, Urine Ketones Negative, Urine Blood Trace-intact H, Urine Nitrate Negative, Urine Bilirubin Negative, Urine Urobilinogen 0.2, Ur Leukocyte Esterase Negative , Urine RBC 0 - 2, Urine WBC Negative, Ur Epithelial Cells 0 - 2, Urine Bacteria Neg 06/15/17 17:45: PT 10.9, INR 1.01, APTT 28.5, D-Dimer, Quantitative 0.19 06/15/17 17:45: WBC 9.9, RBC 3.94, Hgb 12.7 L, Hct 36.6 L, MCV 92.9, MCH 32.2, MCHC 34.7, RDW 14.4, Plt Count 251, MPV 9.8, Gran % 39.4 L, Lymph % (Auto) 38.4 H, [place] % (Auto) 9.4 H, Eos % (Auto) 12.3 H, Baso % (Auto) 0.5, Gran # 3.92, Lymph # 3.8 H, [place] # 0.9 H, Eos # 1.2 H, Baso # 0.05 I have reviewed the lab results: Yes - RAD Interpretation Radiology Orders: 06/15/17 18:01 CHEST PORTABLE [RAD] Stat - Scribe Statement The provider has reviewed the documentation as recorded by the Kitaibtaya Kendall Provider Scribe Attestation: All medical record entries made by the Scribtaya were at my direction and personally dictated by me. I have reviewed the chart and agree that the record accurately reflects my personal performance of the history, physical exam, medical decision making, and the department course for this patient. I have also personally directed, reviewed, and agree with the discharge instructions and disposition. Disposition/Present on Arrival - Present on Arrival Any Indicators Present on Arrival: No History of DVT/PE: No History of Uncontrolled Diabetes: No Urinary Catheter: No History of Decub. Ulcer: No History Surgical Site Infection Following: None - Disposition Have Diagnosis and Disposition been Completed?: Yes Diagnosis: Dizziness, Dyspnea Disposition: AGAINST MEDICAL ADVICE Disposition Time: 08:00 Condition: UNKNOWN Discharge Instructions (ExitCare): Dyspnea (ED), Dizziness (ED) Additional Instructions: return to er with worsening symptoms or concerns. you are declining observation in the hospital at this time. you are able to return at any point with any concern. Referrals: Corie Covington MD [Primary Care Provider] - Follow up with primary Forms: [employer] ([place])
--- NOTE | 2017-06-15 18:25 | RAD ---
HISTORY: sob COMPARISON: Chest x-ray performed 05/23/17 TECHNIQUE: Chest, one view. FINDINGS: Examination limited by habitus. LUNGS: No focal consolidation. Please note that chest x-ray has limited sensitivity for the detection of pulmonary masses. PLEURA: No significant pleural effusion identified. No definite pneumothorax. CARDIOVASCULAR: Heart size appears within normal limits. Atherosclerotic calcifications of the aortic knob. OSSEOUS STRUCTURES: Degenerative changes of the spine. VISUALIZED UPPER ABDOMEN: Unremarkable. OTHER FINDINGS: None. IMPRESSION: No focal consolidation, significant pleural effusion, or definite pneumothorax identified.
[2017-06-15 18:26] LABS: BASO # 0.05 K/mm3 (0.0-2.0); BASO % 0.5 % (0.0-3.0); EOS # 1.2 (0.0-0.7); EOS % 12.3 % (1.5-5.0); GRAN # 3.92 (1.4-6.5); GRAN % 39.4 % (50.0-68.0); HEMATOCRIT 36.6 % (42.0-52.0); LYMPH # 3.8 (1.2-3.4); LYMPH % 38.4 % (22.0-35.0); MEAN CELL VOLUME 92.9 fl (80.0-105.0); MEAN CORPUSCULAR HEMOGLOBIN 32.2 pg (25.0-35.0); MEAN CORPUSCULAR HGB CONC 34.7 g/dl (31.0-37.0); MEAN PLATELET VOLUME 9.8 fl (7.0-11.0); MONO # 0.9 (0.1-0.6); MONO % 9.4 % (1.0-6.0); PH,URINE 6.5 (4.7-8.0); RED CELL DISTRIBUTION WIDTH 14.4 % (11.5-14.5); URINE BILIRUBIN NEGATIVE (NEGATIVE); URINE BLOOD TRACE-INTACT (NEGATIVE); URINE GLUCOSE (UA) NEGATIVE (NEGATIVE); URINE KETONE NEGATIVE (NEGATIVE); URINE LEUKOCYTE ESTERASE NEGATIVE Leu/uL (NEGATIVE); URINE PROTEIN NEGATIVE mg/dL (<30 mg/dL); URINE UROBILINOGEN 0.2 E.U./dL (<1 E.U./dL); WHITE BLOOD COUNT 9.9 10^3/ul (4.5-11.0)
[2017-06-15 18:28] LABS: URINE APPEARANCE CLEAR (CLEAR); URINE COLOR YELLOW (YELLOW)
[2017-06-15 18:31] VITALS: RESP 17; O2SAT 99
[2017-06-15 18:36] LABS: URINE RBC 0 - 2 /hpf (0-2); URINE WBC NEGATIVE /hpf (0-6)
[2017-06-15 18:37] LABS: URINE BACTERIA NEG (NEG); URINE EPITHELIAL CELLS 0 - 2 /hpf (0-5)
[2017-06-15 18:38] LABS: INR 1.01 (0.93-1.08); PARTIAL THROMBOPLASTIN TIME 28.5 Seconds (23.7-30.8)
[2017-06-15 18:39] LABS: ALB/GLOB RATIO 1.3 (1.1-1.8); ALKALINE PHOSPHATASE 84 U/L (38-126); ALT/SGPT 17 U/L (7-56); AST/SGOT 21 U/L (17-59); BILIRUBIN,TOTAL 0.3 mg/dL (0.2-1.3); BLOOD UREA NITROGEN 13 mg/dL (7-21); CALCIUM 9.3 mg/dL (8.4-10.5); CARBON DIOXIDE 27 mmol/L (21-33); CHLORIDE 103 mmol/L (98-107); GFR AFRICAN-AMERICAN > 60; GLUCOSE,RANDOM 121 mg/dL (70-110); MAGNESIUM 2.1 mg/dL (1.7-2.2); POTASSIUM 4.1 mmol/L (3.6-5.0); SODIUM 142 mmol/L (132-148); TOTAL PROTEIN 7.3 g/dL (5.8-8.3)
[2017-06-15 18:40] LABS: D DIMER 0.19 mg/L FEU (0-0.50)
[2017-06-15 18:51] LABS: TROPONIN I < 0.01 ng/mL
--- NOTE | 2017-06-16 23:12 | CARD ---
APPROVED REPORT EKG Measurement Heart [id number] CT [id number] <Conclusion> Normal sinus rhythm Normal ECG
== END 2017-06-15 19:10 | disposition left against medical advice (07) ==
LOC: ED 17:27
DX: R06.00 Dyspnea, unspecified (principal); R42 Dizziness and giddiness; I10 Essential (primary) hypertension; Z86.73 Personal history of transient ischemic attack (TIA), and cerebral infarction without residual deficits; Z87.891 Personal history of nicotine dependence

== ENCOUNTER 2018-11-06 08:21 | Outpatient (CLI) | payer MEDICARE, OTHER | END 2018-11-06 08:22 | disposition home or self-care (01) | LOC: RAD 08:21 ==